=== PATIENT | female | born 1995 | race Caucasian/White ===

== ENCOUNTER 2024-10-14 21:29 | Emergency (ER) | payer BC, SELFPAY ==
--- OUTSIDE RECORDS SUMMARY | 2024-10-14 21:31 | XMS_ITS ---
Author Organization [facility] Address [address] [address] [place] [address] Care Team Providers Care Chassis Inspector Name Role Phone Outside, Provider Primary Care Provider Sandra Bell [phone] Allergies No Known Allergies Medications Medication SIG (Take, Route, Fr equency, Duration) Notes Start Date End Date Status Wegovy 2.4 MG/0.75ML 0.75 mL Subcutaneou s Once weekly for 90 days 03/05/2024 09/09/2024 Active Encounters Encounter Location Date Provider Diagnosis [facility] [address] [address] [place] [address] 03/13/2024 Sandra Foley Obesity, unspecified E66.9 Assessments Encounter Date Diagnosis (ICD Code) Assessment Notes Treatment Notes Treatment Clinical Notes Section Notes 03/13/2024 Obesity, unspecified (ICD-10 - E66.9) Plan Of Treatment Medication Medication Name Sig Start Date Stop Date Notes Wegovy 2.4 MG/0.75ML 0.75 mL Subcutaneou s Once weekly for 90 days 03/05/2024 09/09/2024 Progress Notes * LOLITAIZABELA RichtorriDOB: 4 (28 yo F)Acc No.[id number]:03/13/2024 Patient: Geneva GOMEZ :1995 A ge:28 Y S ex:Female [facility] [facility] [address] * Refills Refill Wegovy Solution Auto-injector, 2.4 MG/0.75ML, Subcutaneous, 9 Milliliter, 0.75 mL, Once weekly, 90 days, Refills=1 Subjective: * Chief Complaints: * * Medical History: * Surgical History: * Hospitalization/Major Diagno stic Procedure: * Medications: * Allergies: N .K.D.A.no[Allergies Verified] Objective: * Vitals: * Physical Examination: Assessment: * Assessment: 1. O besity, unspecified - E66.9 (Primary) Plan: * Treatment: * Procedure Codes: * true * Date: Generated for Marcos rodriguez/Isidro/eTransmitting on: 0 10/14/2024 09:31 PM CDT
--- OUTSIDE RECORDS SUMMARY | 2024-10-14 21:32 | XMS_ITS | Continuity of Care Document ---
Author Organization [facility] Address [address] [place] [address] Phone Care Team Providers Care Improvement Director Name Role Phone Lora Foley MD Unavailable Unavailable Procedures Procedure Date OFFICE/OUTPATIENT VISIT EST Advance Directives Directive Yes / No Effective Date File Name No Information Encounters Encounter Description Practice Location Reason(s) For Visit Diagnoses Date Provider Providers Copied on Encounter OFFICE/OUTPAT IENT VISIT EST [facility], [address], [place], [place], [address], tel:[phone] Rheumatology [place] No Information Og Paulino. [address] [place], [place], [address] , . tel: [phone] Referring Provider: Lora Foley, [address] [place], [address] . tel:[phone] Family History Family Member Type Diagnosis Age At Onset No Information Payers Payer name Insurance type Covered libertarian ID Authoriza tilarry(s) Aetna [id number] Social History Type Description Quantity Date Captured [...]
--- OUTSIDE RECORDS SUMMARY | 2024-10-14 21:32 | XMS_ITS | Patient Health Record ---
Author Organization [facility] Address [address] [facility] [address] [place] [address] Care Team Providers Care Utility Forester Name Role Phone Outside, Provider Primary Care Provider Sandra Bell Unavailable [phone] Allergies No Known Allergies Reason For Referral No Information Medications Medication SIG (Take, Route, Frequency, Duration) Notes Start Date End Date Status Rexulti 1 MG Oral for 90 Days Active Trelegy Ellipta 100-62.5-25 MCG/ACT 1 puff Inhalation Once a day 09/01/2023 Active Lisdexamfetamine Dimesylate 70 MG TAKE ONE (1) CAPSULE(S) BY MOUTH DAILY. Oral for 30 Days Active lamoTRIgine 150 MG TAKE 1 TABLET BY ADRY TH TWICE DAILY Oral for 90 Days Active Problems Problem Type SNOMED Code ICD Code Onset Dates Problem Status W/U Status Risk Notes Problem [id number] Obesity, unspecified (E66.9) Active confirmed Improving with Wegovy, BMI now in overweight category Problem Attention deficit hyperactivity disorder (215453119) ADHD (F90.9) Active confirmed Problem 798238188 Body mass index [BMI] 32.0-32.9, adult (Z68.32) Active confirmed Problem 451332827 Body mass index [BMI] 34.0-34.9, adult (Z68.34) Active confirmed Problem 949562985 Body mass index [BMI] 30.0-30.9, adult (Z68.30) Active confirmed Vital Signs Height-cm 177.8 cm 03/28/2024 Blood pressure diastolic 83 mm Hg 03/28/2024 Weight-kg 88.9 kg 03/28/2024 Height 70 in 03/28/2024 Blood pressure systolic 113 mm Hg 03/28/2024 Weight 196 lbs 03/28/2024 BMI 28.12 kg/m2 03/28/2024 Encounters Encounter Location Date Provider Diagnosis [facility] + [address] [place] [address] 11/02/2023 Sandra Foley Obesity, unspecified E66.9 and Body mass index [BMI] 32.0-32.9, adult Z68.32 [facility] + [address] [place] [address] 02/01/2024 Sandra Foley Obesity, unspecified E66.9 and Body mass index [BMI] 30.0-30.9, adult Z68.30 [facility] + [address] [place] [address] 03/28/2024 Sandra Foley Obesity, unspecified E66.9 and Body mass index [BMI] 28.0-28.9, adult Z68.28 [facility] + [address] [place] [address] 12/26/2023 Sandra Foely Obesity, unspecified E66.9 [place] [address] [address] 03/13/2024 Sandra Foley Obesity, unspecified E66.9 [facility] + [address] [place] [address] 10/17/2023 Sandra Foley [facility] + [address] [place] [address] 10/17/2023 Sandra Foley [facility] + [address] [place] [address] 10/17/2023 Sandra Foley [facility] + [address] [place] [address] 12/26/2023 Sandra Foley [facility] + [address] [place] [address] 12/27/2023 Sandra Foley [facility] + [address] [place] [address] 03/02/2024 Sandra Foley Obesity, unspecified E66.9 Assessments Encounter Date Diagnosis (ICD Code) Assessment Notes Treatment Notes Treatment Clinical Notes Section Notes 11/02/2023 Obesity, unspecified (ICD-10 - E66.9) Pt is doing well on Wegovy, will continue with dose titration. New Rx sent, instructed in plan to increase monthly x5 months, then maintain on 2.4mg. Continue dietary changes. Plan another f/u appt in 3 months, or sooner PRN. 11/02/2023 Body mass index [BMI] 32.0-32.9, adult (ICD-10 - Z68.32) 12/26/2023 Obesity, unspecified (ICD-10 - E66.9) 02/01/2024 Obesity, unspecified (ICD-10 - E66.9) Continue Wegovy, increase to 1.7mg for 4 weeks and then to maintenance dose of 2.4mg. Reviewed continued diet and exercise modifications for sustainable weight loss. Discussed move, will need to set up care with a new provider to continue prescribing and monitoring for Wegovy. Discussed that there will likely be another prior authorization process when her insurance changes and that if she ends up having to go off of it for a prolonged period of time, would need to restart at the lowest dose and titrate up again. We will plan to f/u again in March prior to her move. 02/01/2024 Body mass index [BMI] 30.0-30.9, adult (ICD-10 - Z68.30) 03/02/2024 Obesity, unspecified (ICD-10 - E66.9) 03/13/2024 Obesity, unspecified (ICD-10 - E66.9) 03/28/2024 Obesity, unspecified (ICD-10 - E66.9) Improving with Wegovy, BMI now in overweight category Continue Wegovy at current dose as long as side effects remain tolerable. 3-month supply sent to pharmacy so ideally she can have extra supply while she's getting her new insurance set up and establishing care with new providers. 03/28/2024 Body mass index [BMI] 28.0-28.9, adult (ICD-10 - Z68.28) Plan Of Treatment No Information Insurance Providers Payer Name Payer Address Payer Phone Subscriber Number Group Number Insured Name Patient Relationship to Insured Coverage Start Date Coverage End Date [facility] [address] [place] [address] [phone] [id number] KierranealGeneva cosby Self - patient is the insured 2 Medical (General) History Medical History History ICD Code bipolar disorder asthma sjogren syndrome epilepsy ADHD F90.9 Surgical History Surgery Date(Month/Year) bilateral salpingectomy 12/2021
--- OUTSIDE RECORDS SUMMARY | 2024-10-14 21:32 | XMS_ITS ---
Author Organization [facility] Address [address] [facility] [address] [place] [address] Care Team Providers Care Verification Rep Name Role Phone Outside, Provider Primary Care Provider Sandra Bell [phone] Allergies No Known Allergies REASON FOR VISIT 2 month f/u Medications Medication SIG (Take, Route, Frequency, Duration) Notes Start Date End Date Status Wegovy 2.4 MG/0.75ML 0.75 mL Subcutaneou s Once weekly for 90 days 03/05/2024 09/24/2024 Active Rexulti 1 MG Oral for 90 Days Active Trelegy Ellipta 100-62.5-25 MCG/ACT 1 puff Inhalation Once a day 09/01/2023 Active Lisdexamfetamine Dimesylate 70 MG TAKE ONE (1) CAPSULE(S) BY MOUTH DAILY. Oral for 30 Days Active lamoTRIgine 150 MG TAKE 1 TABLET BY ADRY TWICE DAILY Oral for 90 Days Active Vital Signs Height 70 in 03/28/2024 Weight 196 lbs 03/28/2024 BMI 28.12 kg/m2 03/28/2024 Blood pressure systolic 113 mm Hg 03/28/20 24 Blood pressure diastolic 83 mm Hg 024 Height-cm 177.8 cm 03/28/2024 Weight-kg 88.9 kg 03/28/2024 Encounters Encounter Location Date Provider Diagnosis [facility] [address] [facility] [address] [place] [address] 03/28/2024 Sandra Foley Obesity, unspecified E66.9 and Body mass index [BMI] 28.0-28.9, adult Z68.28 Assessments Encounter Date Diagnosis (ICD Code) Assessment Notes Treatment Notes Treatment Clinical Notes Section Notes 03/28/2024 Obesity, unspecified (ICD-10 - E66.9) Improving [...] adult (ICD-10 - Z68.28) Plan Of Treatment Medication Medication Name Sig Start Date Stop Date Notes Wegovy 2.4 MG/0.75ML 0.75 mL Subcutaneou s Once weekly for 90 days 03/05/2024 09/24/2024 Treatment Notes Assessment Notes Obesity, unspecified Continue Wegovy at current dose as long as side effects remain tolerable. 3-month supply sent to pharmacy so ideally she can have extra supply while she's getting her new insurance set up and establishing care with new providers. Next Appt Details Follow Up: prn, Reason: Progress Notes * Geneva KEITADOB: 4 (28 yo F)Acc No.[id number]:03/28/2024 Patient: Geneva GOMEZ Appointment Provider: Alondra Foley NP :1995 A ge:28 Y S ex:Female Date:03/28/2024 [facility] [address] [facility] Pcp:Provider Outside Subjective: * Chief Complaints: * 2 month f/u * HPI: G YN: 28 year old female pt presents for weight loss f/u. She started Wegovy in August, has lost a total of 44lbs so far. She is very happy with this progress and is feeling better overall. She does note that now that she's on the maximum dose she experiences more nausea and stomach cramps, but it is mainly the day after her injections and it does improve with time and is tolerable. She denies any new concerns at this time. She will be moving to [place] next week, is in the process of setting up appts with new providers up there. * ROS: G eneral/Constitutional: Chills N o. F atigue N o. F ever N o. W eight gain N o. W eight loss Y es. E ndocrine: Cold intolerance N o. I rregular menses Y es. H air loss N o. A cne N o. H ot flashes N o. R espiratory: Cough N o. S hortness of breath N o. ? B reast: Breast lump N o. B reast pain N o. N ipple discharge N o. C ardiovascular: Palpitations N o. C hest pain N o. G astrointestinal: Constipation Y es. N ausea N o. V omiting N o. W omen Only: Vaginal discharge/itching N o. G enitourinary: Blood in urine N o. P ainful urination N o. ? 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 D ate of Last Period . * OB History: T otal pregnancies 0 . * Surgical History: b ilateral salpingectomy 12/2021 * Hospitalization/Major Diagno stic Procedure: N o Hospitalization History. * Family History: P aternal Grand Father: , lung cancer. P aternal Grand Mother: , lung cancer. M aternal Grand Father: , lung cancer. M aternal Grand Mother: , lung cancer. * Social History: P HQ-9: O starr the past 2 weeks, how often have you been bothered by any of the following problems? L ittle interest or pleasure in doing things?N/A F eeling down, depressed, or hopeless N /A T rouble falling asleep, staying asleep, or sleeping too much N /A F eeling tired or having little energy N /A P oor appetite or overeating 0 -Not at all F eeling bad about yourself, feeling that you are a failure, or feeling that you let yourself or your family down 0 -Not at all T rouble concentrating on things such as reading the newspaper or watching television N /A M oving or speaking so slowly that other people could have noticed. Or being so fidgety or restless that you have been moving around a lot more than usual 0 -Not at all T hinking that you would be better off or that you want to hurt yourself in some way 0 -Not at all Impairment in function H ow difficult have these problems made it for you to do your work, take care of things at home, or get along with other people? N ot difficult at all S ocial Determinants: F ood Insecurities Within the past 12 months we worried whether our food would run out before we got money to buy more N o Within the past 12 months the food we bought just didn't last and we didn't have money to get more N o L markos term Partner Tobacco-Never. * Medications: T akingLisdexamfetamine Dimesylate 70 MG Capsule TAKE ONE (1) CAPSULE(S) BY MOUTH DAILY. Oral lamoTRIgine 150 MG Tablet TAKE 1 TABLET BY MOUTH TWICE DAILY Oral Rexulti 1 MG Tablet Oral Trelegy Ellipta 100-62.5-25 MCG/ACT Aerosol Powder Breath Activated 1 puff Inhalation Once a day Wegovy 2.4 MG/0.75ML Solution Auto-injector 0.75 mL Subcutaneous Once weekly , stop date 09/09/2024Medication List reviewed and reconciled with the patientTaking Lisdexamfetamine Dimesylate 70 MG Capsule TAKE ONE (1) CAPSULE(S) BY MOUTH DAILY. Oral Taking lamoTRIgine 150 MG Tablet TAKE 1 TABLET BY MOUTH TWICE DAILY Oral Taking Rexulti 1 MG Tablet Oral Taking Trelegy Ellipta 100-62.5-25 MCG/ACT Aerosol Powder Breath Activated 1 puff Inhalation Once a day Taking Wegovy 2.4 MG/0.75ML Solution Auto-injector 0.75 mL Subcutaneous Once weekly , stop date 09/09/2024Medication List reviewed and reconciled with the patient * Allergies: N .K.D.A.no[Allergies Verified] Objective: * Vitals: Ht 70 in 03/28/2024 01:35:08 PM CDT Wt* 196lbs 03/28/2024 01:35:08 PM CDT Jasmyne subramanian MA BMI* 28.12Index 03/28/2024 01:35:09 PM CDT Jasmyne subramanian MA BP* 113/83mm Hg 03/28/2024 01:35:09 PM CDT Jasmyne subramanian MA Ht-cm* 177.8 cm 03/28/2024 01:35:09 PM CDT Jasmyne subramanian MA Wt-kg* 88.9 kg 03/28/2024 01:35:09 PM CDT Jasmyne subramanian MA * Examination: G eneral Exam: CONSTITUTIONAL: G eneral Appearance: a lert, in no acute distress, normal, well nourished HEENT: H ead: n ormocephalic, atraumatic RESPIRATORY: R espiratory Effort: b reathing unlabored MUSCULOSKELETAL: G ait and Station: s teady stance SKIN: S kin: n ormal NEURO/PSYCH: O rientation: t zachary , place, person M ood/Affect: n ormal Assessment: * Assessment: 1. O besity, unspecified - E66.9 (Primary) N otes :Improving with Wegovy, BMI now in overweight category 2 . B silvio mass index [BMI] 28.0-28.9, adult - Z68.28 Plan: * Treatment: * Procedure Codes: 9 6160 PT-FOCUSED HLTH RISK ASSMT * Follow Up: p rn * Billing Information: * Visit Code: 15913 Office Visit, Est Pt., Level 3. * Procedure Codes: 67302 PT-FOCUSED HLTH RISK ASSMT. 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 She started Wegovy in August, has lost a total of 44lbs so far. She is very happy with this progress and is feeling better overall. She does note that now that she's on the maximum dose she experiences more nausea and stomach cramps, but it is mainly the day after her injections and it does improve with time and is tolerable. She denies any new concerns at this time. She will be moving to [place] next week, is in the process of setting up appts with new providers up there. Examination Category Sub-Category Detail Notes Category Not es General Exam CONSTITUTIONAL: General Appearan ce:: alert, in no acute distress, normal, well nourished HEENT: Head:: normocephalic, atraumatic RESPIRATORY: Respiratory Effort:: breathing u nlabored MUSCULOSKELETAL: Gait and Station:: steady stanc e SKIN: Skin:: normal NEURO/PSYCH: Orientation:: time , place, pers on Mood/Affect:: normal
--- OUTSIDE RECORDS SUMMARY | 2024-10-14 21:32 | XMS_ITS ---
Author Organization [facility] Address [address] [facility] [address] [place] [address] Care Team Providers Care Director Center Name Role Phone Outside, Provider Primary Care Provider Sandra Bell [phone] REASON FOR VISIT 2 month f/u Medications [...] Location Date Provider Diagnosis [facility] + [address] [place] [address] [place] [phone] 03/19/2024 Sandra Foley Plan Of Treatment No Information Progress Notes * Geneva KEITADOB: 4 (29 yo F)Acc No.[id number]:03/19/2024 Patient: Geneva GOMEZ Appointment Provider: Alondra Foley NP :1995 A ge:28 Y S ex:Female Date:03/19/2024 Address:[facility] [address] [facility] Pcp:Provider Outside Subjective: * Chief Complaints: * [...] Electronic signature of Anabel Foley NP on 10/14/2024 at 09:32 PM CDT Sign off status: Pending * Appointment Provider: Alondra Foley NP Date: 1 Generated for Marcos rodriguez/Isidro/eTransmtru on: 0 10/14/2024 09:32 PM CDT
[2024-10-14 21:36] VITALS: BP 129/85; PULSE 103; RESP 28; TEMP 37.1; O2SAT 99
[2024-10-14] MEDS: 0.9 % SODIUM CHLORIDE 1000 ml 1,000 ML IV (21:54)
[2024-10-14 21:58] VITALS: PULSE 85; RESP 20; O2SAT 99
[2024-10-14 21:59] VITALS: O2SAT 99
[2024-10-14 22:04] LABS: Lactate* 1.4 mmol/L (0.5-1.9)
[2024-10-14 22:05] LABS: Basophils Absolute Auto 0.02 K/uL (0.00-0.30); Basophils Percent Auto 0.3 % (0.0-3.0); Eosinophils Absolute Auto 0.07 K/uL (0.00-0.50); Eosinophils Percent Auto 1.1 % (0.0-7.0); Hematocrit 33.9 % (33.0-51.0); Hemoglobin* 10.9 gm/dL (12.0-16.0); Immature Granulocytes Abs Auto 0.01 K/uL (0.00-0.30); Immature Granulocytes Pct Auto 0.2 %; Lymphocytes Absolute Auto 2.28 K/uL (0.90-2.90); Lymphocytes Percent Auto 34.5 % (20-44); Mean Corpuscular HGB Conc 32 gm/dL (32-36); Mean Corpuscular Hemoglobin 28 pg (26-34); Mean Corpuscular Volume 87 fL (80-100); Monocytes Percent Auto 5.4 % (0.0-11.0); Neutrophils Absolute Auto 3.87 K/uL (1.7-7.0); Neutrophils Percent Auto 58.5 % (42.0-72.0); Platelet Count* 358 K/uL (140-440); RDW Coefficient of Variation % 13.7 % (11.5-15.5); White Blood Count* 6.61 K/uL (4.50-11.00)
[2024-10-14 22:06] VITALS: BP 125/87; PULSE 86; RESP 20; TEMP 36.8; O2SAT 98
[2024-10-14 22:06] LABS: Slide Review Reflex No
--- OUTSIDE RECORDS SUMMARY | 2024-10-14 22:06 | XMS_ITS | Continuity of Care Document ---
Author Organization [facility] Address [address] [place] [address] Phone Care Team Providers Care Inventory Representative Name Role Phone Lora Foley MD Unavailable Unavailable Procedures Procedure Date OFFICE/OUTPATIENT VISIT EST Advance Directives Directive Yes / No Effective Date File Name No Information Encounters Encounter Description Practice Location Reason(s) For Visit Diagnoses Date Provider Providers Copied on Encounter OFFICE/OUTPAT IENT VISIT EST [facility], [address], [place], [place], [id number], tel:[phone] Rheumatology [place] No Information Og Paulino. [address] [place], [place], [id number] , . tel: [phone] Referring Provider: Lora Foley, [address] [place], [address] . tel:[phone] Family History Family Member Type Diagnosis Age At Onset No Information Payers Payer name Insurance type Covered republican ID Authoriza tilarry(s) [employer] [id number] Social History Type Description Quantity Date Captured [...]
[2024-10-14 22:18] LABS: Chloride* 105 mmol/L (96-114)
[2024-10-14] MEDS: ONDANSETRON 2 MG/ML inj 4 MG IVP (22:18)
[2024-10-14 22:19] LABS: Potassium* 3.8 mmol/L (3.6-5.1); Sodium* 137 mmol/L (135-149)
[2024-10-14 22:22] LABS: Anion Gap 8 mEq/L (7-15); Blood Urea Nitrogen* 13 mg/dL (5-24); Calcium* 8.7 mg/dL (8.4-10.6); Carbon Dioxide* 24 mmol/L (20-32); Creatinine* 0.7 mg/dL (0.5-1.5); Estimated Glomerular Filt Rate 119 ml/min; Glucose* 105 mg/dL (60-115)
[2024-10-14 22:26] LABS: C Reactive Protein* < 0.5 mg/dL (0.5-1.0)
[2024-10-14 22:33] LABS: D Dimer Quantitative* 0.27 ug/ml (0.00-0.50)
[2024-10-14 22:43] VITALS: BP 121/77; PULSE 82; RESP 16; O2SAT 98
[2024-10-14 22:56] LABS: NT Pro B Type NatriureticPept* 57 pg/mL
--- NOTE | 2024-10-14 23:02 | ED_ITS ---
HPI - Allergic Reaction General Date Seen: 10/14/24 Chief complaint: Allergic Reaction Stated complaint: allergic reaction Time Seen by Provider: 10/14/24 21:33 Source: patient and family Mode of arrival: ambulatory Limitations: no limitations History of Present Illness HPI narrative: Patient is a very nice 29-year-old female presents here with her partner for evaluation of a possible allergic reaction, she was at home eating, when she felt her throat closing. She felt herself audibly wheezing in her tongue swelling. She presents to the ER by her own vehicle and this occurred approxi mately 15 minutes ago. She does tell me that she does have a history of anaphylaxis when she was young peanuts, but she has had peanut butter since then, and has done well with this. She felt herself hyperventilating with a perioral numbness associated with this and also in her fingers. She took 75 mg total Benadryl at home. Before presenting here. No rashes no diarrhea no abdominal pain, she does have a history of asthma and uses her inhaler, irregularly. Not every day No history of any rashes associated with this. MD complaint: allergic reaction Severity: moderate Treatment prior to arrival: benadryl Previous Allergic Reaction History: anaphylaxis Related Data Home Medications ?Medication ?Instructions ?Recorded ?Confirmed lamotrigine 150 mg tablet 150 mg PO QDAY 04/10/24 10/14/24 (Lamictal) dextroamphetamine-amphetamine 10 1 tab PO DAILY 10/14/24 10/14/24 mg tablet hydroxyzine HCl 25 mg tablet 25 mg PO 3XD PRN 10/14/24 10/14/24 Previous Rx's ?Medication ?Instructions ?Recorded fluticasone furoate 100 1 inh inhalation QDAY #30 ea 05/16/24 mcg/actuation blister powder for inhalation (Arnuity Ellipta) lisdexamfetamine 70 mg capsule 70 mg PO QDAY #30 caps 08/06/24 (Vyvanse) brexpiprazole 1 mg tablet (Rexulti) 1 mg PO QDAY #30 tabs 08/20/24 epinephrine 0.3 mg/0.3 mL 0.3 mg (0.3 mL) IM Q5-15M PRN #2 ea 10/14/24 injection, auto-injector (EpiPen) Allergies Allergy/AdvReac Type Severity Reaction Status Date / Time banana Allergy Mild Vomiting Verified 05/16/24 10:05 eggplant Allergy Mild Diarrhea Verified 05/16/24 10:05 latex Allergy Mild Rash Verified 05/16/24 10:05 Review of Systems Status of ROS Reports: 10 or more systems reviewed and unremarkable except as noted in History and below PFSH PFS Surgical History History of bilateral salpingectomy ?Z90.79 - Acquired absence of other genital organ(s) (ICD-10) Family History Mother High blood pressure Father High blood pressure Psychiatric illness Maternal Grandmother Cancer Maternal Grandfather Cancer Paternal Grandmother Cancer Paternal Grandfather Cancer Social History What is your current living situation?: I presently have a place to live Problems where you live: no known problems In the past 12 months, utilities in danger of being shut off: no In past 12 months, lack of transportation kept you from medical appts, meetings, work, or getting things needed for daily living: no In the past 12 mos, have been you worried that your food would run out before you had money to buy more?: never true In the past 12 mos, the food you bought just didn't last and you didn't have money to buy more?: never true Smoking Status: Never smoker Do you use any of these nicotine containing products: None How often do you have a drink containing alcohol: never AUDIT-C Alcohol total score: 0 Non-prescribed substance use: denies use How often does anyone, including family, friends and others, physically hurt you : never How often does anyone, including family, friends and others, insult or talk down to you: never How often does anyone, including family, friends and others, threaten you with harm: never How often does anyone, including family, friends and others, scream or curse at you: never Exam Narrative: Exam Narrative: I find her in room 6, she appears to be hyperventilating slightly, and initially almost stridorous. But then when we got her to breathe through her nose the stridor went away. Her pupils are equal round reactive to light there is no scleral icterus redness or TMs are normal oropharynx normal her chest is good air entry bilaterally with no wheezing crackles noted heart sounds are normal her tongue appears normal this examiner, I do not see any swelling. Her neck is supple there is no meningismus her abdomen is soft and slightly obese there is no guarding no organomegaly bowel sounds are normal skin reveals no petechiae rashes. Const: Vital Signs, click to edit/add: Vital Signs - 24 hr 10/14/24 21:36 10/14/24 21:58 10/14/24 21:59 Temperature 98.8 F Pulse Rate [Pulse Oximeter] 103 H 85 Respiratory Rate 28 H 20 Blood Pressure [Le ft Upper Arm] 129/85 Pulse Oximetry 99 99 99 Oxygen Delivery Me thod Room Air Room Air 10/14/24 22:06 10/14/24 22:43 Temperature 98.3 F Pulse Rate [Pulse Oximeter] 86 82 Respiratory Rate 20 16 Blood Pressure [Le ft Upper Arm] 125/87 121/77 Pulse Oximetry 98 98 Oxygen Delivery Me thod Room Air Room Air Course Reevaluation(s) Time of Reevaluation #1: 23:33 Reevaluation #1: I went back and saw patient, easy respirations normal vital signs, her throat shows no swelling, her tongue is normal, and she has good air entry bilaterally with no wheezing crackles no stridorous respirations, no rashes seen.. Explained to her sometimes it is hard to differentiate allergic reaction from anxiety attack. She had stick matted of both of these. I think it would be reasonable to give her an EpiPen, have her follow-up with Allergy for testing, she does have the history of the peanut allergy in the past. We went over signs and symptoms when she should come back and be seen, she was comfortable in going home. Vital Signs Vital signs: Initial Vital Signs Temperature 98.8 F 10/14/24 21:36 Temperature Source Temporal Artery Scan 10/14/24 21:36 Pulse Rate 103 H 10/14/24 21:36 Respiratory Rate 28 H 10/14/24 21:36 Blood Pressure 129/85 10/14/24 21:36 Blood Pressure Mean 99 10/14/24 21:36 Blood Pressure Position Sitting 10/14/24 21:36 Pulse Oximetry 99 10/14/24 21:36 Oxygen Delivery Method Room Air 10/14/24 21:36 Vital Signs Temperature 98.8 F 10/14/24 21:36 Pulse Rate 103 H 10/14/24 21:36 Respiratory Rate 28 H 10/14/24 21:36 Blood Pressure 129/85 10/14/24 21:36 Pulse Oximetry 99 10/14/24 21:36 Oxygen Delivery Method Room Air 10/14/24 21:36 Temperature 98.3 F 10/14/24 22:06 Pulse Rate 82 10/14/24 22:43 Respiratory Rate 16 10/14/24 22:43 Blood Pressure 121/77 10/14/24 22:43 Pulse Oximetry 98 10/14/24 22:43 Oxygen Delivery Method Room Air 10/14/24 22:43 Medications Administered Medications: Discontinued Medications Generic Name Dose Route Start Last Admin Trade Name Freq PRN Reason Stop Dose Admin Sodium Chloride 1,000 mls @ 1,000 mls/hr 10/14/24 21:45 10/14/24 22:42 0.9 % Sodium Chloride 1000 Ml IV 10/14/24 22:44 Infused .Q1H JENNIFER Infusion Ondansetron HCl 4 mg 10/14/24 22:15 10/14/24 22:18 Ondansetron 2 Mg/Ml Inj IVP 10/14/24 22:16 4 mg ONCE ONE Administration MDM - Allergic Reaction MDM Narrative Medical decision making narrative: This could be related to early allergic reaction versus anaphylaxis versus reflux versus anxiety. Or combination of all. Given her past history of the peanut allergy, and she did tell me that she did carry an EpiPen for a while I think it be reasonable to watch her, I find her rate now to be stable. Although this can change we will do some laboratory tests also with this. Differential Diagnosis Differential diagnosis: Likely anaphylaxis, allergic reaction, angioedema, contact dermatitis, adverse reaction to drug, viral enanthem and urticaria Medical Records Attestation: I reviewed the patient's medical records. Lab Data Attestation: I reviewed the patient's lab results. Labs: Lab Results 10/14/24 Range/Units 22:00 WBC 6.61 (4.50-11.00) K/uL RBC 3.90 L (4.00-5.20) m/uL Hgb 10.9 L (12.0-16.0) gm/dL Hct 33.9 (33.0-51.0) % MCV 87 (80-100) fL MCH 28 (26-34) pg MCHC 32 (32-36) gm/dL RDW Coeff of Liz 13.7 (11.5-15.5) % Plt Count 358 (140-440) K/uL Neut % (Auto) 58.5 (42.0-72.0) % Lymph % (Auto) 34.5 (20-44) % Rowan % (Auto) 5.4 (0.0-11.0) % Eos % (Auto) 1.1 (0.0-7.0) % Baso % (Auto) 0.3 (0.0-3.0) % Neut # (Auto) 3.87 (1.7-7.0) K/uL Lymph # (Auto) 2.28 (0.90-2.90) K/uL Rowan # (Auto) 0.40 (0.00-0.90) K/UL Eos # (Auto) 0.07 (0.00-0.50) K/uL Baso # (Auto) 0.02 (0.00-0.30) K/uL Abs Immat Gran (auto) 0.01 (0.00-0.30) K/uL Imm/Tot Granulo (auto) 0.2 % D-Dimer Quant (PE/DVT) 0.27 (0.00-0.50) ug/ml Sodium 137 (135-149) mmol/L Potassium 3.8 (3.6-5.1) mmol/L Chloride 105 (96-114) mmol/L Carbon Dioxide 24 (20-32) mmol/L Anion Gap 8 (7-15) mEq/L BUN 13 (5-24) mg/dL Creatinine 0.7 (0.5-1.5) mg/dL Estimated GFR 119 ml/min Glucose 105 (60-115) mg/dL Lactate 1.4 (0.5-1.9) mmol/L Calcium 8.7 (8.4-10.6) mg/dL C-Reactive Protein < 0.5 L (0.5-1.0) mg/dL NT-Pro-B Natriuret Pep 57 pg/mL ECG Data Attestation: I personally reviewed and interpreted this ECG as follows: Prior ECG tracings: not available for review Interpretation: EKG is done which shows normal sinus rhythm normal EKG, no acute ST wave changes with a ventricular rate of 85. Discharge Plan Discharge Clinical Impression: Allergic reaction, Anxiety Patient Disposition: Home, Self-Care Condition: Improved Instructions: Anxiety (ED), Allergy Testing (ED) Additional Instructions: Home, rest, as discussed with you I think a referral to agile business analyst would be appropriate, please contact her primary care physician they can give this to you. Prescription given for an EpiPen also. Activity Level: Light activity Discharge Diet: Regular Prescriptions: New epinephrine [EpiPen] 0.3 mg/0.3 mL auto-injector 0.3 mg IM Q5-15M PRNQty: 2 0RF Rx Instructions: do not exceed 3 doses per episode No Action lamotrigine [Lamictal] 150 mg tablet 150 mg PO QDAY Arnuity Ellipta 100 mcg/actuation blister with device 1 inh inhalation QDAY Qty: 30 12RF dextroamphetamine-amphetamine 10 mg tablet 1 tab PO DAILY hydroxyzine HCl 25 mg tablet 25 mg PO 3XD PRN lisdexamfetamine [Vyvanse] 70 mg capsule 70 mg PO QDAY Qty: 30 0RF Rexulti 1 mg tablet 1 mg PO QDAY Qty: 30 1RF Follow Up/Referrals: Simon Mendoza MD [Primary Care Provider] - Stand Alone Forms: [employer] Info Instructions
== END 2024-10-14 23:39 | disposition home or self-care (01) ==
PROVIDERS: Emergency Provider Family Medicine; PCP Family Medicine
DX: T78.1XXA Other adverse food reactions, not elsewhere classified, initial encounter (principal); R06.2 Wheezing; R20.0 Anesthesia of skin; F41.9 Anxiety disorder, unspecified; Z91.010 Allergy to peanuts
CPT/HCPCS: 36415; 80048; 83605; 83880; 85025; 85379; 86140; 93005; 94761; 96374; 99284; J2405; J7030

== ENCOUNTER 2024-10-15 15:38 | Outpatient (CLI) | payer BC, SELFPAY ==
[2024-10-15 19:14] LABS: Chlamydia DNA Amplified* NOT DETECTED (No Detected); GC DNA Amplified* NOT DETECTED (No Detected)
== END 2024-10-15 15:39 | disposition home or self-care (01) ==
LOC: NFLDREF 15:38
PROVIDERS: PCP Family Medicine; Visit Provider Obstetrics & Gynecology
DX: R10.2 Pelvic and perineal pain (principal)
CPT/HCPCS: 87491; 87591

== ENCOUNTER 2024-10-22 12:47 | Outpatient (CLI) | payer BC, SELFPAY ==
--- NOTE | 2024-10-22 13:00 | CRLHL7_ITS ---
For Patients: As a result of the Century Cures Act, medical imaging exams and procedure reports are released immediately into your electronic medical record. You may view this report before your referring provider. If you have questions, please contact your health care provider. INDICATION: unspecified dyspareunia COMPARISON: none TECHNIQUE: 2D yepez scale and color Doppler images were acquired of the pelvis using a transabdominal and transvaginal approach. Spectral Doppler evaluation of the ovaries also performed. FINDINGS: Sonographic images demonstrate a normal size and smooth outer contour of the uterus. Uterus measures 7.1 cm in length by 3.2 cm in AP diameter by 4.9 cm in transverse dimension. The myometrium has a normal uniform echotexture. The endometrial lining measures 12 mm in composite thickness. Incidental cervical nabothian cysts. Endocervical fluid is present. The right ovary measures 3.6 x 2.6 x 3.2 cm in size and the left ovary measures 2.7 x 2.2 x 2.8 cm. The ovaries demonstrate normal arterial and venous blood flow on color Doppler analysis. There are no suspicious fluid collections within the cul-de-sac. Simple cyst right ovary measures 2.3 x 1.8 x 2.3 cm. Postop changes of bilateral salpingectomy. Normal spectral Doppler evaluation of both ovaries. IMPRESSION: Benign 2.3 cm simple cyst right ovary. Incidental bowel loops in the right adnexa. No evidence of ovarian torsion or excess pelvic free fluid. No uterine fibroid. Dictated by Eric Ryder MD @ 10/23/2024 6:02:15 AM (Electronically Signed)
== END 2024-10-22 12:48 | disposition home or self-care (01) ==
LOC: US 12:47
PROVIDERS: PCP Family Medicine; Visit Provider Obstetrics & Gynecology
DX: N94.10 Unspecified dyspareunia (principal); N83.291 Other ovarian cyst, right side; R10.2 Pelvic and perineal pain
CPT/HCPCS: 76830; 76856; 93976

== ENCOUNTER 2024-11-22 08:58 | Outpatient (RCR) | payer BC, SELFPAY | END 2025-03-22 23:59 | disposition home or self-care (01) | PROVIDERS: PCP Family Medicine; Visit Provider Obstetrics & Gynecology | DX: N94.10 Unspecified dyspareunia (principal); R29.91 Unspecified symptoms and signs involving the musculoskeletal system; R10.2 Pelvic and perineal pain; F43.10 Post-traumatic stress disorder, unspecified; Z51.89 Encounter for other specified aftercare | CPT/HCPCS: 97140; 97162 ==

== ENCOUNTER 2024-12-03 08:48 | Emergency (ER) | payer BC, SELFPAY ==
--- OUTSIDE RECORDS SUMMARY | 2020-09-03 19:00 | XMS_ITS | Continuity of Care Document ---
Author Organization [facility] Address [address] [place] [address] Phone Care Team Providers Care Forestry Fire Aide Name Role Phone Lora Foley MD Unavailable Unavailable Procedures Procedure Date OFFICE/OUTPATIENT VISIT EST Advance Directives Directive Yes / No Effective Date File Name No Information Encounters Encounter Description Practice Location Reason(s) For Visit Diagnoses Date Provider Providers Copied on Encounter OFFICE/OUTPAT IENT VISIT EST [facility], [address], [place], [place], [address], [phone] Rheumatology [place] No Information Og Paulino. [address] [place], [place], [id number] , . tel: [phone] Referring Provider: Lora Foley, [address] [place], [address] . tel:[phone] Family History Family Member Type Diagnosis Age At Onset No Information Payers Payer name Insurance type Covered democrat ID Authoriza tilarry(s) Aetna [id number] Social History Type Description Quantity Date Captured [...]
--- OUTSIDE RECORDS SUMMARY | 2020-09-03 19:00 | XMS_ITS | Continuity of Care Document ---
Author Organization [facility] Address [address] [place] [address] Phone Care Team Providers Care Photo Engraver Name Role Phone Lora Foley MD Unavailable Unavailable Procedures Procedure Date OFFICE/OUTPATIENT VISIT EST Advance Directives Directive Yes / No Effective Date File Name No Information Encounters Encounter Description Practice Location Reason(s) For Visit Diagnoses Date Provider Providers Copied on Encounter OFFICE/OUTPAT IENT VISIT EST [facility], [address], [place], [place], [address], [phone] Rheumatology [place] No Information Og Paulino. [address] [place], [place], [id number] , . tel: [phone] Referring Provider: Lora Foley, [address] [place], [address] . tel:[phone] Family History Family Member Type Diagnosis Age At Onset No Information Payers Payer name Insurance type Covered democrat ID Authoriza tilarry(s) Aetna [id number] Social History Type Description Quantity Date Captured [...]
--- OUTSIDE RECORDS SUMMARY | 2024-03-19 08:00 | XMS_ITS ---
Author Organization [facility] Address [address] [facility] [address] [place] [address] Care Team Providers Care Winding Inspector Name Role Phone Outside, Provider Primary Care Provider Sandra Bell [phone] REASON FOR VISIT 2 month f/u Medications [...] Location Date Provider Diagnosis [facility] + [address] [place] [address] [place] [address] 03/19/2024 Sandra Foley Plan Of Treatment No Information Progress Notes * Geneva KEITADOB: 4 (29 yo F)Acc No.[id number]:03/19/2024 Patient: Geneva GOMEZ Appointment Provider: Alondra Foley NP :1995 A ge:28 Y S ex:Female Date:03/19/2024 Address:[facility] [address], [facility] Pcp:Provider Outside Subjective: * Chief Complaints: * [...] Electronic signature of Anabel Foley NP on 12/03/2024 at 08:50 AM CDT Sign off status: Pending * Appointment Provider: Alondra Foley NP Date: 1 Generated for Marcos rodriguez/Isidro/eTransmitting on: 0 12/03/2024 08:50 AM CDT
--- OUTSIDE RECORDS SUMMARY | 2024-12-03 08:51 | XMS_ITS | Patient Health Record ---
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 Name Role Phone Outside, Provider Primary Care Provider Sandra Bell Unavailable [phone] Allergies No Known Allergies Reason For Referral [...] Problem Status W/U Status Risk Notes Problem [id number] Obesity, unspecified (E66.9) Active confirmed Improving with Wegovy, BMI now in overweight category Problem ADHD (F90.9) Active confirmed Problem [id number] Body mass index [BMI] 32.0-32.9, adult (Z68.32) Active confirmed Problem 289000011 Body mass index [BMI] 34.0-34.9, adult (Z68.34) Active confirmed Problem [id number] Body mass index [BMI] 30.0-30.9, adult (Z68.30) Active confirmed Vital Signs Blood pressure diastolic 83 mm Hg 03/28/2024 Height-cm 177.8 cm 03/28/2024 Weight-kg 88.9 kg 03/28/2024 Height 70 in 03/28/2024 Blood pressure systolic 113 mm Hg 03/28/2024 Weight 196 lbs 03/28/2024 BMI 28.12 kg/m2 03/28/2024 Encounters Encounter Location Date Provider Diagnosis [facility] [address] [facility] [address] [place] [address] 02/01/2024 Sandra Og Obesity, unspecified E66.9 and Body mass index [BMI] 30.0-30.9, adult Z68.30 [facility] [address] [facility] [address] [place] [address] 03/28/2024 Sandra Og Obesity, unspecified E66.9 and Body mass index [BMI] 28.0-28.9, adult Z68.28 [facility] + [address] [facility] [address] [place] [address] 12/26/2023 Sandra Og Obesity, unspecified E66.9 [facility] [address] [address] 03/13/2024 Sandra Og Obesity, unspecified E66.9 [facility] + [address] [facility] [address] [place] [address] 12/26/2023 Sandra Og [facility] + [id number] [place] [address] 12/27/2023 Sandra Og [facility] + [address] [place] [address] 03/02/2024 Sandra Og Obesity, unspecified E66.9 Assessments Encounter Date Diagnosis (ICD Code) Assessment Notes Treatment Notes Treatment Clinical Notes Section Notes 12/26/2023 Obesity, unspecified (ICD-10 - E66.9) 02/01/2024 [...] Insured Coverage Start Date Coverage End Date [facility] [address] [place] [address] [id number] Geneva Mendoza Self - patient is the insured 2 Medical (General) History Medical History History ICD Code bipolar disorder asthma sjogren syndrome epilepsy ADHD F90.9 Surgical History Surgery Date(Month/Year) bilateral salpingectomy 12/2021
[2024-12-03 09:02] VITALS: BP 121/92; PULSE 85; RESP 18; TEMP 36.2; O2SAT 97; BMI 31.3
--- NOTE | 2024-12-03 09:30 | CRLHL7_ITS ---
For Patients: As a result of the Century Cures Act, medical imaging exams and procedure reports are released immediately into your electronic medical record. You may view this report before your referring provider. If you have questions, please contact your health care provider. INDICATION: Right upper quadrant abdomen pain. TECHNIQUE: Ultrasound abdomen limited. Sonographic images of the right upper quadrant were obtained using yepez-scale and color Doppler images. COMPARISON: None. FINDINGS: Liver: Mildly echogenic liver. No suspicious masses. No intrahepatic biliary dilatation. Hepatopetal flow main portal Gallbladder: No stones or sludge. Normal wall thickness. No pericholecystic fluid. Positive sonographic Castellanos`s sign. Positive sonographic Castellanos`s sign. Common bile duct: 2 mm. Pancreas: Obscured by bowel gas. Right kidney: Normal in size. Normal echotexture and cortex. No suspicious masses, stones, or hydronephrosis. Vasculature: Proximal abdominal aorta and IVC are unremarkable. IMPRESSION: Hepatic steatosis. Dictated by Shraddha Crain MD @ 12/03/2024 10:05:27 AM (Electronically Signed)
--- NOTE | 2024-12-03 10:05 | ED_ITS ---
HPI - General Adult General Chief complaint: Abdominal Pain Stated complaint: upper right side abdominal pain Time Seen by Provider: 12/03/24 09:30 Source: patient Mode of arrival: ambulatory Limitations: no limitations History of Present Illness HPI narrative: 29-year-old female coming in today complaining of abdominal pain going on for approximately 1 week. Pain is located in the epigastric and right upper dimple drant region. It is worse after she eats. She states that she had 1 alcoholic beverage yesterday and that made her pain worse, has not had any alcohol in over a month. No fevers or chills. She feels nauseated but has not vomited. She has 2 soft bowel movements per day which is normal for her. She denies any urinary symptoms. Patient is on multiple medications, nothing new. Pain is a dull ache that is constant becomes sharp in more aggressive after eating, lasts about 2 hours before it becomes dull again. Patient's mother had a cholecystectomy around the same age. Related Data Home Medications ?Medication ?Instructions ?Recorded ?Confirmed lamotrigine 150 mg tablet 150 mg PO QDAY 04/10/2411/12 (Lamictal) dextroamphetamine-amphetamine 10 1 tab PO DAILY 12/03/24 mg tablet hydroxyzine HCl 25 mg tablet 25 mg PO 3XD PRN 10/14/24 10/30/24 metformin 500 mg tablet 1,000 mg PO QDAY 10/30/24 Previous Rx's ?Medication ?Instructions ?Recorded fluticasone furoate 100 1 inh inhalation QDAY #30 ea 05/16/24 mcg/actuation blister powder for inhalation (Arnuity Ellipta) lisdexamfetamine 70 mg capsule 70 mg PO QDAY #30 caps 08/06/24 (Vyvanse) brexpiprazole 1 mg tablet (Rexulti) 1 mg PO QDAY #30 t abs 08/20/24 epinephrine 0.3 mg/0.3 mL 0.3 mg (0.3 mL) IM Q5-15M FL N #2 ea 10/14/24 injection, auto-injector (EpiPen) Allergies Allergy/AdvReac Type Severity Reaction Status Date / Time banana Allergy Mild Vomiting Verified 12/03/24 09:08 eggplant Allergy Mild Diarrhea Verified 12/03/24 09:08 latex Allergy Mild Rash Verified 12/03/24 09:08 seasame Allergy Severe Anaphylaxis Uncoded 12/03/24 09:08 Review of Systems Status of ROS: Reports: 10 or more systems reviewed and unremarkable except as noted in History and below PFSH [facility] Surgical History History of bilateral salpingectomy ?Z90.79 - Acquired absence of other genital organ(s) (ICD-10) Family History Mother High blood pressure Father High blood pressure Psychiatric illness Maternal Grandmother Cancer Maternal Grandfather Cancer Paternal Grandmother Cancer Paternal Grandfather Cancer Social History What is your current living situation?: I presently have a place to live Problems where you live: no known problems In the past 12 months, utilities in danger of being shut off: no In past 12 months, lack of transportation kept you from medical appts, meetings, work, or getting things needed for daily living: no In the past 12 mos, have been you worried that your food would run out before you had money to buy more?: never true In the past 12 mos, the food you bought just didn't last and you didn't have money to buy more?: never true Smoking Status: Never smoker Do you use any of these nicotine containing products: None How often do you have a drink containing alcohol: never AUDIT-C Alcohol total score: 0 Non-prescribed substance use: denies use How often does anyone, including family, friends and others, physically hurt you : never How often does anyone, including family, friends and others, insult or talk down to you: never How often does anyone, including family, friends and others, threaten you with harm: never How often does anyone, including family, friends and others, scream or curse at you: never Exam Narrative: Exam Narrative: Overweight, well-developed patient in no acute distress. Alert and oriented. Answers questions appropriately. Mood appropriate, affect is slightly flat.. Thoughts are goal oriented and rational. No tangential or magical thinking noted. Patient speaks in full sentences without needing to catch her breath. HEENT: Normocephalic atraumatic. Pupils are equally round reactive to light. Extraocular muscles are intact. Conjunctivae are moist without any icterus noted. Moist mucous membranes. Posterior pharynx is normal. Neck is soft. Cardiovascular: Heart is regular rate and rhythm S1 and S2 are present without any murmurs. Lungs: Clear to auscultation bilaterally no wheezes rhonchi or rales are appreciated. Patient takes deep breaths without any discomfort. Abdomen: Soft and nondistended. Patient has acute right upper quadrant pain, positive Castellanos sign. Some epigastric discomfort as well, remainder of exam is unremarkable. Extremities: Bilateral lower extremities are without edema. Normal DP and PT pulses. Skin: Well perfused. Const: Vital Signs, click to edit/add: Vital Signs - 24 hr 12/03/24 09:02 Temperature 97.2 F L Pulse Rate [Pulse Oximeter] 85 Respiratory Rate 18 Blood Pressure [Ri ght Upper Arm] 121/92 H Pulse Oximetry 97 Oxygen Delivery Me thod Room Air Course Course ED Course: Ultrasound shows hepatic steatosis, normal gallbladder. Blood work unremarkable. Vital Signs Vital signs: Initial Vital Signs Temperature 97.2 F L 12/03/24 09:02 Temperature Source Temporal Artery Scan 12/03/24 09:02 Pulse Rate 85 12/03/24 09:02 Respiratory Rate 18 12/03/24 09:02 Blood Pressure 121/92 H 12/03/24 09:02 Blood Pressure Mean 101 12/03/24 09:02 Blood Pressure Position Sitting 12/03/24 09:02 Pulse Oximetry 97 12/03/24 09:02 Oxygen Delivery Method Room Air 12/03/24 09:02 Vital Signs Temperature 97.2 F L 12/03/24 09:02 Pulse Rate 85 12/03/24 09:02 Respiratory Rate 18 12/03/24 09:02 Blood Pressure 121/92 H 12/03/24 09:02 Pulse Oximetry 97 12/03/24 09:02 Oxygen Delivery Method Room Air 12/03/24 09:02 Temperature 97.2 F L 12/03/24 09:02 Pulse Rate 85 12/03/24 09:02 Respiratory Rate 18 12/03/24 09:02 Blood Pressure 121/92 H 12/03/24 09:02 Pulse Oximetry 97 12/03/24 09:02 Oxygen Delivery Method Room Air 12/03/24 09:02 Medical Decision Making MDM Narrative Medical decision making narrative: 29-year-old female with right upper quadrant abdominal pain, worse after eating. Symptoms are concerning for gallbladder dysfunction. Recommend follow-up with primary care to proceed with a HIDA scan. In the meantime, recommend daily omeprazole as gastritis or peptic ulcer disease can also be a possibility. Lab Data Lab results reviewed: Yes I reviewed the patient's lab results Labs: Lab Results 12/03/24 Range/Units 10:12 WBC 5.68 (4.50-11.00) K/uL RBC 4.46 (4.00-5.20) m/uL Hgb 12.2 (12.0-16.0) gm/dL Hct 38.6 (33.0-51.0) % MCV 87 (80-100) fL MCH 27 (26-34) pg MCHC 32 (32-36) gm/dL RDW Coeff of Liz 14.5 (11.5-15.5) % Plt Count 363 (140-440) K/uL Neut % (Auto) 60.6 (42.0-72.0) % Lymph % (Auto) 30.8 (20-44) % [place] % (Auto) 6.2 (0.0-11.0) % Eos % (Auto) 1.6 (0.0-7.0) % Baso % (Auto) 0.4 (0.0-3.0) % Neut # (Auto) 3.45 (1.7-7.0) K/uL Lymph # (Auto) 1.75 (0.90-2.90) K/uL [place] # (Auto) 0.40 (0.00-0.90) K/UL Eos # (Auto) 0.09 (0.00-0.50) K/uL Baso # (Auto) 0.02 (0.00-0.30) K/uL Abs Immat Gran (auto) 0.02 (0.00-0.30) K/uL Imm/Tot Granulo (auto) 0.4 % Sodium 137 (135-149) mmol/L Potassium 4.4 (3.6-5.1) mmol/L Chloride 104 (96-114) mmol/L Carbon Dioxide 24 (20-32) mmol/L Anion Gap 9 (7-15) mEq/L BUN 13 (5-24) mg/dL Creatinine 0.9 (0.5-1.5) mg/dL Estimated Creat Clear 97.94 Estimated GFR 88 ml/min Glucose 95 (60-115) mg/dL Lactate 0.7 (0.5-1.9) mmol/L Calcium 9.0 (8.4-10.6) mg/dL Total Bilirubin 0.5 (0.1-1.5) mg/dL Direct Bilirubin 0.2 (0.0-0.5) mg/dL AST 22 (12-35) U/L ALT 17 (4-35) U/L Alkaline Phosphatase 82 (40-150) U/L C-Reactive Protein < 0.5 L (0.5-1.0) mg/dL Total Protein 8.0 (6.0-8.3) g/dL Albumin 4.4 (3.3-5.0) g/dL Lipase 72 (23-300) U/L Urine Color Yellow (Yellow) Urine Appearance Clear (Clear) Urine pH 5.5 (5.0-8.5) Ur Specific [place] 1.025 (1.000-1.030) Urine Protein Negative (Negative) Urine Glucose (UA) Negative (Negative) Urine Ketones Negative (Negative) Urine Blood Negative (Negative) Urine Nitrite Negative (Negative) Urine Bilirubin Negative (Negative) Urine Urobilinogen 0.2 (0.2-1.0) Ur Leukocyte Esterase Negative (Negative) Urine RBC 0-2 (0-2) Urine WBC 0-2 (0-5) Ur Squamous Epith Cells Moderate A (None-Few) Urine Bacteria Few A (None) Urine HCG, Qual Negative (Negative) Imaging Data US - abdomen: Attestation: I have reviewed the pertinent imaging results. Radiologist's impression: TECHNIQUE: Ultrasound abdomen limited. Sonographic images of the right upper quadrant were obtained using yepez-scale and color Doppler images. COMPARISON: None. FINDINGS: Liver: Mildly echogenic liver. No suspicious masses. No intrahepatic biliary dilatation. Hepatopetal flow main portal Gallbladder: No stones or sludge. Normal wall thickness. No pericholecystic fluid. Positive sonographic Castellanos`s sign. Positive sonographic Castellanos`s sign. Common bile duct: 2 mm. Pancreas: Obscured by bowel gas. Right kidney: Normal in size. Normal echotexture and cortex. No suspicious masses, stones, or hydronephrosis. Vasculature: Proximal abdominal aorta and IVC are unremarkable. IMPRESSION: Hepatic steatosis. Discharge Plan Discharge Clinical Impression: Abdominal pain Patient Disposition: Home, Self-Care Condition: Stable Additional Instructions: Cause of your abdominal pain is unclear at this time. Gastritis or inflammation of the lining of the stomach can cause pain similar to what your experiencing so I do recommend you double your omeprazole to 2 tabs daily and you can also start taking Zantac when you are uncomfortable to see if this helps. This can be purchased [id number]. The other thing that can cause your pain is gallbladder dysfunction-you will need something called a HIDA scan ordered by your primary care provider to make sure that your gallbladder is functioning properly. In the meantime I would recommend eating more bland foods, avoid foods high in fat and avoid food that is spicy or contains a lot of acid such as citrus fruits, tomatoes. Follow-up with your primary care provider this week to proceed with further testing. Prescriptions: No Action lamotrigine [Lamictal] 150 mg tablet 150 mg PO QDAY Arnuity Ellipta 100 mcg/actuation blister with device 1 inh inhalation QDAY Qty: 30 12RF metformin 500 mg tablet 1,000 mg PO QDAY dextroamphetamine-amphetamine 10 mg tablet 1 tab PO DAILY hydroxyzine HCl 25 mg tablet 25 mg PO 3XD PRN epinephrine [EpiPen] 0.3 mg/0.3 mL auto-injector 0.3 mg IM Q5-15M PRNQty: 2 0RF Rx Instructions: do not exceed 3 doses per episode lisdexamfetamine [Vyvanse] 70 mg capsule 70 mg PO QDAY Qty: 30 0RF Rexulti 1 mg tablet 1 mg PO QDAY Qty: 30 1RF Follow Up/Referrals: Simon Mendoza MD [Primary Care Provider, Family Practice] Stand Alone Forms: [employer] Info Instructions
[2024-12-03 10:17] LABS: Lactate* 0.7 mmol/L (0.5-1.9)
[2024-12-03 10:20] LABS: Basophils Absolute Auto 0.02 K/uL (0.00-0.30); Basophils Percent Auto 0.4 % (0.0-3.0); Eosinophils Absolute Auto 0.09 K/uL (0.00-0.50); Eosinophils Percent Auto 1.6 % (0.0-7.0); Hematocrit 38.6 % (33.0-51.0); Hemoglobin* 12.2 gm/dL (12.0-16.0); Immature Granulocytes Abs Auto 0.02 K/uL (0.00-0.30); Immature Granulocytes Pct Auto 0.4 %; Lymphocytes Absolute Auto 1.75 K/uL (0.90-2.90); Lymphocytes Percent Auto 30.8 % (20-44); Mean Corpuscular HGB Conc 32 gm/dL (32-36); Mean Corpuscular Hemoglobin 27 pg (26-34); Mean Corpuscular Volume 87 fL (80-100); Monocytes Percent Auto 6.2 % (0.0-11.0); Neutrophils Absolute Auto 3.45 K/uL (1.7-7.0); Neutrophils Percent Auto 60.6 % (42.0-72.0); Platelet Count* 363 K/uL (140-440); RDW Coefficient of Variation % 14.5 % (11.5-15.5); Red Blood Count 4.46 m/uL (4.00-5.20); White Blood Count* 5.68 K/uL (4.50-11.00)
[2024-12-03 10:21] LABS: Appearance Urine Clear (Clear); Bilirubin Urine Negative (Negative); Blood Urine Negative (Negative); Color Urine Yellow (Yellow); Glucose Urine Negative (Negative); Ketones Urine Negative (Negative); Leukocyte Esterase Urine Negative (Negative); Nitrite Urine Negative (Negative); Protein Urine Negative (Negative); Specific Gravity Urine 1.025 (1.000-1.030); Urobilinogen Urine 0.2 (0.2-1.0); pH Urine 5.5 (5.0-8.5)
[2024-12-03 10:26] LABS: Slide Review Reflex No
[2024-12-03 10:29] LABS: RBC Urine 0-2 (0-2); Squamous Epithelial Cell Urine Moderate (None-Few); WBC Urine 0-2 (0-5)
[2024-12-03 10:30] LABS: Bacteria Urine Few; Ur HCG Qualitative* Negative (Negative)
[2024-12-03 10:35] LABS: Albumin* 4.4 g/dL (3.3-5.0); Chloride* 104 mmol/L (96-114)
[2024-12-03 10:36] LABS: Potassium* 4.4 mmol/L (3.6-5.1); Sodium* 137 mmol/L (135-149)
[2024-12-03 10:38] LABS: Blood Urea Nitrogen* 13 mg/dL (5-24); Creatinine* 0.9 mg/dL (0.5-1.5); Est. Creatinine Clearance* 97.94; Estimated Glomerular Filt Rate 88 ml/min
[2024-12-03 10:39] LABS: Alanine Aminotransferase* 17 U/L (4-35); Alkaline Phosphatase* 82 U/L (40-150); Anion Gap 9 mEq/L (7-15); Aspartate Amino Transferase* 22 U/L (12-35); Bilirubin Direct* 0.2 mg/dL (0.0-0.5); Bilirubin Total* 0.5 mg/dL (0.1-1.5); Carbon Dioxide* 24 mmol/L (20-32); Glucose* 95 mg/dL (60-115); Lipase* 72 U/L (23-300)
[2024-12-03 10:42] LABS: C Reactive Protein* < 0.5 mg/dL (0.5-1.0)
[2024-12-03 11:00] VITALS: BP 118/74; PULSE 76; RESP 16; O2SAT 8
== END 2024-12-03 11:53 | disposition home or self-care (01) ==
PROVIDERS: Emergency Provider Family Medicine; PCP Family Medicine
DX: R10.11 Right upper quadrant pain (principal)
CPT/HCPCS: 36415; 76705; 80048; 80076; 81001; 81025; 83605; 83690; 85025; 86140; 87086; 99284

== ENCOUNTER 2024-12-11 11:39 | Outpatient (CLI) | payer BC, SELFPAY ==
--- OUTSIDE RECORDS SUMMARY | 2020-09-03 19:00 | XMS_ITS | Continuity of Care Document ---
Author Organization [facility] Address [address] [place] [address] Phone Care Team Providers Care Freezer Laboratory Technician Name Role Phone Lora Foley MD Unavailable Unavailable Procedures Procedure Date OFFICE/OUTPATIENT VISIT EST Advance Directives Directive Yes / No Effective Date File Name No Information Encounters Encounter Description Practice Location Reason(s) For Visit Diagnoses Date Provider Providers Copied on Encounter OFFICE/OUTPAT IENT VISIT EST [facility], [address], [place], [place], [address], tel:[phone] Rheumatology [place] No Information Og Paulino. [address] [place], [place], [address] , . tel: [phone] Referring Provider: Lora Foley, [address] [place], [address] . tel:[phone] Family History Family Member Type Diagnosis Age At Onset No Information Payers Payer name Insurance type Covered democrat ID Authoriza tilarry(s) Aetna [id number] Social History Type Description Quantity Date Captured Comments Sex Female Smoking Status No Information Chief Complaint And Reason For Visit No Information Reason For Referral Reason For Referral No Information History Of Present Illness Encounter Date Complaint History Of Prese nt Illness No Information Functional Status Date Functional Assessmen t No Information Instructions Date Instruction Additional Infor mation No Information Assessments Type Assessment Date No Information Patient Care Teams Name Effective Dates (start - stop) Status Members No Information
--- OUTSIDE RECORDS SUMMARY | 2024-03-19 08:00 | XMS_ITS ---
Author Organization [facility] Address [address] [facility] [address] [place] [address] Care Team Providers Care Resource Program Teacher Name Role Phone Outside, Provider Primary Care Provider Sandra Bell [phone] REASON FOR VISIT 2 month f/u Medications Medication SIG (Take, Route, Frequency, Duration) Notes Start Date End Date Status Lisdexamfetamine Dimesylate 70 MG TAKE ONE (1) CAPSULE(S) BY MOUTH DAILY. Oral for 30 Days Active lamoTRIgine 150 MG TAKE 1 TABLET BY ADRY TH TWICE DAILY Oral for 90 Days Active Wegovy 2.4 MG/0.75ML 0.75 mL Subcutaneou s Once weekly for 90 days 03/05/2024 09/09/2024 Active Rexulti 1 MG Oral for 90 Days Active Trelegy Ellipta 100-62.5-25 MCG/ACT 1 puff Inhalation Once a day 09/01/2023 Active Encounters Encounter Location Date Provider Diagnosis [facility] + [address] [place] [address] [place] [address] 03/19/2024 Sandra Foley Plan Of Treatment No Information Progress Notes * Geneva KEITADOB: 4 (29 yo F)Acc No.[id number]:03/19/2024 Patient: Geneva GOMEZ Appointment Provider: Alondra Foley NP :1995 A ge:28 Y S ex:Female Date:03/19/2024 Address:[facility] [address], [facility] Pcp:Provider Outside Subjective: * Chief Complaints: * 1 . 2 month f/u. * Medical History: * Medications: T zaidag Lisdexamfetamine Dimesylate 70 MG Capsule TAKE ONE [...] Electronic signature of Anabel Foley NP on 12/12/2024 at 12:36 AM CDT Sign off status: Pending * Appointment Provider: Alondra Foley NP Date: 1 Generated for Marcos rodriguez/Isidro/eTransmtru on: 0 12/12/2024 12:36 AM CDT
--- NOTE | 2024-12-11 12:00 | CRLHL7_ITS ---
For Patients: As a result of the Century Cures Act, medical imaging exams and procedure reports are released immediately into your electronic medical record. You may view this report before your referring provider. If you have questions, please contact your health care provider. INDICATION: 29-year-old woman with history of abdominal pain. TECHNIQUE: 7.1 MCi Tc 99m Mebrofenin were administered intravenously and serial static images were obtained over the anterior abdomen over 60 minutes, demonstrating radiotracer uptake within the gallbladder and demonstrating tracer exiting into the small bowel. Subsequently, 2.0 Micrograms cholecystokinin was administered intravenously and the anterior abdomen was serially imaged with static views for another 30 minutes. COMPARISON: : Abdomen ultrasound 01/02/2025. FINDINGS: Initial 60 minutes images: There is normal radionuclide activity in the liver, common bile duct, gallbladder and small bowel. There is no evidence for cystic or common duct obstruction or intrinsic liver disease. After administration of cholecystokinin, minimal tracer is demonstrated exiting the gallbladder into the common bile duct and small bowel, with substantial residual tracer in the gallbladder. The gallbladder ejection fraction measures 29 %. Normal range for GB EF: Equal to or greater than 35%. IMPRESSION: 1. No evidence of cystic duct obstruction to support acute cholecystitis. No evidence of common bile duct obstruction. 2. Gallbladder ejection fraction measures 29 %, below normal limits. Findings are nonspecific, but can be seen with gallbladder dysfunction. Dictated by Kenton Abernathy MD @ 12/11/2024 3:15:10 PM (Electronically Signed)
--- OUTSIDE RECORDS SUMMARY | 2024-12-12 00:39 | XMS_ITS | Patient Health Record ---
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 Phone Outside, Provider Primary Care Provider Sandra Bell Unavailable [phone] Allergies No Known Allergies Reason For Referral [...] Problem Status W/U Status Risk Notes Problem [id number] Obesity, unspecified (E66.9) Active confirmed Improving with Wegovy, BMI now in overweight category Problem ADHD (F90.9) Active confirmed Problem 233463000 Body mass index [BMI] 32.0-32.9, adult (Z68.32) Active confirmed Problem 367968725 Body mass index [BMI] 34.0-34.9, adult (Z68.34) Active confirmed Problem 074493137 Body mass index [BMI] 30.0-30.9, adult (Z68.30) Active confirmed Vital Signs Blood pressure diastolic 83 mm Hg 03/28/2024 Height-cm 177.8 cm 03/28/2024 Weight-kg 88.9 kg 03/28/2024 Height 70 in 03/28/2024 Blood pressure systolic 113 mm Hg 03/28/2024 Weight 196 lbs 03/28/2024 BMI 28.12 kg/m2 03/28/2024 Encounters Encounter Location Date Provider Diagnosis [facility] [address] [facility] [address] [place] [address] 02/01/2024 Sandra Og Obesity, unspecified E66.9 and Body mass index [BMI] 30.0-30.9, adult Z68.30 [facility] [address] [facility] [address] [place] [address] 03/28/2024 Sandra Og Obesity, unspecified E66.9 and Body mass index [BMI] 28.0-28.9, adult Z68.28 [facility] [address] [facility] [address] [place] [address] 12/26/2023 Sandra Og Obesity, unspecified E66.9 [facility] [address] [address] 03/13/2024 Sandra Og Obesity, unspecified E66.9 [facility] [address] [facility] [address] [place] [address] 12/26/2023 Sandra Og [facility] + [address] [place] [address] 12/27/2023 Sandra Og [facility] + [address] [place] [address] 03/02/2024 Sandra Og Obesity, unspecified E66.9 Assessments [...] Insured Coverage Start Date Coverage End Date [facility] [address] [place] [address] [id number] Geneva Mendoza Self - patient is the insured 2 Medical (General) History Medical History History ICD Code bipolar disorder asthma sjogren syndrome epilepsy ADHD F90.9 Surgical History Surgery Date(Month/Year) bilateral salpingectomy 12/2021
== END 2024-12-11 11:40 | disposition home or self-care (01) ==
LOC: NM 11:39
PROVIDERS: PCP Family Medicine; Visit Provider Emergency Medicine
DX: R10.9 Unspecified abdominal pain (principal)
CPT/HCPCS: 78227; A9537; J2805

== ENCOUNTER 2024-12-24 09:04 | Day surgery (SDC) | payer BC, SELFPAY ==
[2024-12-24] VITALS (16 sets, daily range): BP systolic 114–148; BP diastolic 78–97; PULSE 60–81; RESP 13–20; TEMP 36.2–37.2; O2SAT 95–100; BMI 32.5
--- NOTE | 2024-12-24 09:22 | SUR.PREOP ---
pt declined UCG because she had a tubal
[2024-12-24] MEDS: GABAPENTIN 600 MG TABLET PO (09:25)
[2024-12-24] MEDS: SCOPOLAMINE 1 MG/3 DAY PATCH 1 PATCH TRANSDERMA (09:25)
[2024-12-24] MEDS: LACTATED RINGERS 1000 ML 1,000 ML 100 ML IV ×2 (09:45→12:24)
[2024-12-24] MEDS: SODIUM CHLORIDE 0.9 % (FLUSH) 10 ML SYRINGE IVF (09:46)
--- NOTE | 2024-12-24 09:48 | W.PM.H&PU ---
History & Physical Update History & Physical Update H&P Reviewed and patient assessed: No changes noted
--- NOTE | 2024-12-24 09:53 | P.GSOP_ITS ---
Operative Note Date of procedure: 12/24/24 Pre-op diagnosis: 1. Right upper quadrant pain concerning for acute on chronic cholecystitis. Post-op diagnosis: 1. Chronic cholecystitis with tortuous cystic duct causing partial gallbladder obstruction. Type of Procedure: 1. Laparoscopic cholecystectomy. Indications: 29-year-old female was seen in clinic for evaluation of right upper quadrant abdominal pain. The pain started over 1 month ago. Initially, patient felt like the pain was more of an upset stomach. However, the pain migrated to the right upper quadrant and became more sharp. It was worse after eating fatty food of fast food. The pain would last up to an hour and sometimes up to 3 hours. Patient currently has dull constant aching and the pain increases after eating. The pain was worse with lying down or sitting up. Patient has been taking Omeprazole for years for acid reflux. She feels like her acid reflux is well controlled. Patient was seen for in the emergency room for this pain on 12/03/2024. Patient's WBC, lipase, and liver function tests were normal. Gallbladder ultrasound was obtained that showed no evidence of cholelithiasis, there was no evidence of pericholecystic fluid in the gallbladder wall was measured at 1 mm. The common bile duct was measured at 2 mm. Patient was noted to have positive Castellanos sign during her ultrasound. She was then referred for a HIDA scan which was done on 12/11/2024. The HIDA scan showed ejection fraction of 29%. Patient felt sharp pain towards the end of HIDA scan. On clinical exam patient had nondistended abdomen, it was tender to palpation the right upper quadrant with positive Castellanos sign. Given patient's clinical history and her laboratory and imaging findings, I was concerned for acute cholecystitis. I recommended to proceed with laparoscopic cholecystectomy. The procedure was discussed in detail. The risks associated procedure including infection, bleeding, injury to intra-abdominal organs, injury to the common bile duct were all discussed with the patient, and she agreed to proceed. Procedure Description: After discussing the risks and benefits of the procedure, the patient signed informed consent.? The operative site was marked and the patient was brought to the operating room and placed on the operating table in supine position.? Care was taken to pad the patient's pressure points.?? The patient was then intubated by anesthesia.?? The operative site was then prepped and draped in the usual sterile fashion.? A time-out was then performed. A 5-mm laparoscopy port was placed in the left upper quadrant guided by a 5-mm laparoscope placed into a translucent trochar.~ Passage through the layers of the abdominal wall was visualized with the laparoscope.~ A pneumoperitoneum was established. A 0-degree 5-mm laparoscope was advanced into the abdomen. The abdomen was briefly surveyed, and no adhesions were noted. A 10-mm port were placed infraumbilically and two more 5 mm ports were placed on the right under direct visualization by laparoscope. The camera was then changed to 10 mm 30- degree scope and placed into the abdomen through the 10 mm port. The left upper quadrant port entrance was examined and no injury to intra-abdominal organs was identified. The gallbladder was identified, the fundus grasped and retracted cephalad. There is no evidence of acute inflammation. Duodenum was adherent to the anterior surface of the gallbladder with thin wispy adhesions. Those adhesions were taken down with hook cautery and Metzenbaum scissors with care taken not to injure the duodenum. The infundibulum was then grasped and retracted laterally, exposing the peritoneum overlying the triangle of Calot. This was then divided and exposed in a blunt fashion and with hook cautery. Common bile duct was not identified but care was taken not to injure it. Cystic artery was identified and tissues around it were dissected off. The cystic artery was medial and was small. The cystic artery was first clipped with 5 mm clips on the patient's side and a single clip on the specimen side and divided with scissors. This allowed for further visualization of the medial gallbladder fossa. The cystic duct was very torturous and was circumferentially dissected to be able to clearl y identify its course. The cystic duct was clearly going into the gallbladder. The cystic duct was then ligated with surgical clips on the patient's side and singly clipped on the gallbladder side and divided. The gallbladder was dissected from the liver bed in retrograde fashion using hookcautery. The gallbladder was placed into an Endo-Catch bag and removed through the infraumbilical incision. Surgical site was examined for bleeding. No bleeding was seen in the surgical field. The fascia of the infraumbilical incision was then closed with 0-0 vicryl using Aden Sangita needle under direct visualization. Pneumoperitoneum was completely reduced after viewing removal of the trocars under direct vision. The skin was then closed with 4-0 monocryl and steristrips were applied. Instrument, sponge, and needle counts were correct at closure and at the conclusion of the case. The patient was transferred to PACU in stable condition. Findings: No evidence of acute inflammation. Torturous small cystic duct that was likely causing partial obstruction of the gallbladder. Anesthesia: GETA Surgeon: Melody Mccarthy MD Estimated blood loss (mL): 5 Specimen: Gallbladder Condition: stable Disposition: PACU
[2024-12-24] MEDS: PIPERACILLIN/TAZOBACTAM 3.375 GM INJ IVPB (10:15)
[2024-12-24] MEDS: LIDOCAINE 1%-EPI 1:100,000 20 ML INFILTRATI (10:50)
[2024-12-24] MEDS: BUPIVACAINE 0.25% 30 ML INJECTION (10:50)
--- NOTE | 2024-12-24 11:31 | P.ANES_ITS ---
Anesthesia Charges Start Date/Time Anesthesia Start Date: 12/24/24 Anesthesia Start Time: 10:05 Stop Date/Time Anesthesia Stop Date: 12/24/24 Anesthesia Stop Time: 11:29 Coding CPT Codes CPT Codes: ANESTH SURG UPPER ABDOMEN - 80154 ([id number]) P2 - PATIENT W/MILD SYST DISEASE, QK - MENDER KNIT GOODS 2-4 CNCRNT ANES PROC, QX - RN ORTHOPAEDIC SVC W/ MD MED DIRECTION
--- NOTE | 2024-12-24 11:31 | W.ANESCHARGE ---
Anesthesia Charges Start Date/Time Anesthesia Start Date: 12/24/24 Anesthesia Start Time: 10:05 Stop Date/Time Anesthesia Stop Date: 12/24/24 Anesthesia Stop Time: 11:29 Coding CPT Codes CPT Codes: ANESTH SURG UPPER ABDOMEN - 88414 ([id number]) P2 - PATIENT W/MILD SYST DISEASE, QK - NETWORK TECHNOLOGY INSTRUCTOR 2-4 CNCRNT ANES PROC, QX - MEDICAL PATHOLOGY TEACHER SVC W/ MD MED DIRECTION
--- NOTE | 2024-12-24 11:41 | P.ANES_ITS ---
Anesthesia Charges Start Date/Time Anesthesia Start Date: 12/24/24 Anesthesia Start Time: 10:05 Stop Date/Time Anesthesia Stop Date: 12/24/24 Anesthesia Stop Time: 11:29 Coding CPT Codes CPT Codes: ANESTH SURG UPPER ABDOMEN - 58456 ([id number]) QK - ERP CONSULTANT 2-4 CNCRNT ANES PROC, QX - FREIGHT ASSOCIATE SVC W/ MD MED DIRECTION, P2 - PATIENT W/MILD SYST DISEASE
--- NOTE | 2024-12-24 11:41 | W.ANESCHARGE ---
Anesthesia Charges Start Date/Time Anesthesia Start Date: 12/24/24 Anesthesia Start Time: 10:05 Stop Date/Time Anesthesia Stop Date: 12/24/24 Anesthesia Stop Time: 11:29 Coding CPT Codes CPT Codes: ANESTH SURG UPPER ABDOMEN - 17353 ([id number]) QK - HOUSING DIRECTOR 2-4 CNCRNT ANES PROC, QX - BRANCH OFFICE MANAGER SVC W/ MD MED DIRECTION, P2 - PATIENT W/MILD SYST DISEASE
--- NOTE | 2024-12-24 13:23 | SUR.PHASEII ---
Pt c/o nausea. Offered pt Q-Easy aromatherapy patch. Pt willing to apply and patch applied to pt's gown. Continue to monitor.
== END 2024-12-24 13:57 | disposition home or self-care (01) ==
PROVIDERS: PCP Family Medicine; Visit Provider Surgery
PROC: 0FT44ZZ Resection of Gallbladder, Percutaneous Endoscopic Approach (ICD-10-PCS; CPT 47562; principal; 2024-12-24 10:15)
DX: K81.1 Chronic cholecystitis (principal); K82.0 Obstruction of gallbladder; R10.11 Right upper quadrant pain
CPT/HCPCS: 47562; 00790; A9270; J0665; J1100; J1885; J2250; J2405; J2543; J2704; J2710; J3010; J7120

== ENCOUNTER 2025-04-15 11:37 | Emergency (ER) | payer BC, SELFPAY ==
--- OUTSIDE RECORDS SUMMARY | 2024-03-19 07:00 | XMS_ITS ---
Author Organization [facility] Address [address] [facility] [address] [place] [address] Care Team Providers Care Lode Miner Name Role Phone Outside, Provider Primary Care Provider Sandra Bell [phone] REASON FOR VISIT 2 month f/u Medications Medication SIG (Take, Route, Frequency, Duration) Notes Start Date End Date Status Lisdexamfetamine Dimesylate 70 MG TAKE ONE (1) CAPSULE(S) BY MOUTH DAILY. Oral; Duration: 30 Days Active lamoTRIgine 150 MG TAKE 1 TABLET BY ADRY TH TWICE DAILY Oral; Duration: 90 Days Active Wegovy 2.4 MG/0.75ML 0.75 mL Subcutaneou s Once weekly; Duration: 90 days 03/05/2024 09/09/2024 Active Rexulti 1 MG Oral; Duration: 90 Days Active Trelegy Ellipta 100-62.5-25 MCG/ACT 1 puff Inhalation Once a day 09/01/2023 Active Encounters Encounter Location Date Provider Diagnosis [facility] + [address] [place] [address] [place] [address] 03/19/2024 Sandra Foley Plan Of Treatment No Information Progress Notes * Geneva KEITADOB: 4 (29 yo F)Acc No.[id number]:03/19/2024 Patient: Geneva GOMEZ Appointment Provider: Alondra Foley NP :1995 A ge:28 Y S ex:Female Date:03/19/2024 Address:[facility] [address], [facility], [facility] Pcp:Provider Outside Subjective: * Chief Complaints: * 1 . 2 month f/u. * Medical History: * Medications: T kirill Lisdexamfetamine Dimesylate 70 MG Capsule TAKE ONE (1) CAPSULE(S) BY MOUTH DAILY. Oral , Taking lamoTRIgine 150 MG Tablet TAKE 1 TABLET BY MOUTH TWICE DAILY Oral , Taking Rexulti 1 MG Tablet Oral , Taking Trelegy Ellipta 100-62.5-25 MCG/ACT Aerosol Powder Breath Activated 1 puff Inhalation Once a day , Taking Wegovy 2.4 MG/0.75ML Solution Auto-injector 0.75 mL Subcutaneous Once weekly , stop date 09/09/2024 Objective: Assessment: Plan: * Treatment: * Billing Information: * Visit Code: * Procedure Codes: * Electronic signature of Anabel Foley NP on 04/15/2025 at 11:39 AM CHIEF TECHNICAL OFFICER Sign off status: Pending * Appointment Provider: Alondra Foley NP Date: Generated for Marcos rodriguez/Isidro/eTransmitting on: 06/15/2024 11:39 AM CHIEF TECHNICAL OFFICER
--- OUTSIDE RECORDS SUMMARY | 2025-03-08 15:00 | XMS_ITS | Encounter Summary ---
Author Organization [facility] Address [address] [place] [id number] Care Team Providers Care Brush Sander Name Role Phone Simon Mendoza MD Primary Care Provider [phone] Racheal Palomares MD Unavailable Reason for Visit * Reason Comments Consult Sjogren's syndrome; Scheduled per pt; Referred by Simon Mendoza MD; MR-Epic * Consultation (Routine: Next available opening) - Closed Specialty Diagnoses / Procedures Referred By Farhat main Referred To Contact Rheumatology Diagnoses Sjogren syndrome, unspecified Simon Mendoza MD [facility] [address] [place] [address] Phone: tel: fax: Referral ID Status Reason Start Date Expiration Date Visits Re quested Visits Authorized [id number] Closed 02/28/2025 02/28/2026 1 1 Encounter Details Date Type Department Care Team (Late st Contact Info) Description 03/08/2025 4:00 PM CDT Office Visit [facility] [address] [place] [id number] Racheal Palomares MD [address] [facility] [address] [place] [address] Sjogren syndrome, unspecified Social History Tobacco Use Types Packs/Day Years Used Date Smoking Tobacco: Never Assessed Comments Unknown Sex and Gender Information Value Date Recorded Sex Assigned at Not on file Legal Sex Female 3:28 PM CDT Gender Identity Not on file Sexual Orientation Not on file documented as of this encounter Last Filed Vital Signs Vital Sign Reading Time Taken Comments Blood Pressure 126/84 03/08/2025 3:54 PM CDT Pulse 102 03/08/2025 3:54 PM CDT Temperature - - Respiratory Rate - - Oxygen Saturation 99% 03/08/2025 3:54 PM CDT Inhaled Oxygen Concentration - - Weight 107 kg (236 lb) 03/08/2025 3:54 PM CDT Height 177.8 cm (5' 10) 03/08/2025 3:54 PM CDT Body Mass Index 33.86 03/08/2025 3:54 PM CDT documented in this encounter Progress Notes * Racheal Palomares MD - 03/08/2025 4:00 PM CDT NEW PATIENT RHEUMATOLOGY VISIT Assessment & Plan Problem List Asthma Bipolar Type 1 Anxiety PTSD GERD Focal epilepsy History of gallbladder removal in December 2024. Sjogren's disease Comment: Diagnosis based on SICCA symptoms, arthralgias, fatigue, raynaud's and SAMANTHA 1: 320 speckledpattern, +SSA Negative SCL 70, centromere, dsDNA, CONCRETE CRUSHER LOADER OPERATOR, and Cano Tx history: Plaquenil [id number] Methotrexate 2021 (was on this for 6 months) with improvement in arthralgias over knees and hands but had anxiety over injections as well as severe nausea/vomiting Has been lost to care since 2021. Currently with arthralgias and stiffness over knees and ankles with subjective swelling, and stiffness over fingers with pain with overuse. Morning stiffness lastingabout 20-30 minutes, no evidence of inflammatory arthritis on exam today, profound fatigue, dry eyes, dry mouth, dry skin Plan: -conservative management for Raynaud's, - Prescribed hydroxychloroquine (Plaquenil) 400 mg daily, to be started after completion of a Plaquenil eye exam, given prior plaquenil use and no previous plaquenil eye exam. 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 -I reviewed the potential adverse reactions related to Hydroxychloroquine/Plaquenil of retinal toxicity, changes in pigmentation of the skin, hematologic side effects, myopathy, cardiomyopathy (rare), and stomach upset including nausea and vomiting. Preventative care in patient with autoimmune disease Comment: Plan: -Discussed with patient that people with autoimmune disease have increased risk of cardiovascular disease. Recommended working with their primary care doctor to mitigate cardiovascular risk factors. -Discussed with patient that those of autoimmune disease and on immunosuppressive medications have a higher risk of malignancies. They are up-to-date on Pap smears Reproductive health Comment: Currently is sexually active. Not planning . Has had surgical removal of fallopian tubes. The longitudinal plan of care for the diagnosis(es)/condition(s) as documented were addressed during this visit. Due to the added complexity in care, I will continue to support [place] in the subsequent management and with ongoing continuity of care. Return to Clinic in 3 months Orders Placed This Encounter Procedures ALT AST Creatinine CBC with platelets Erythrocyte sedimentation rate auto CRP inflammation 60 minutes spent on the day of the encounter doing chart review, history and exam, counseling and documentation. Subjective HPI Patient is referred for evaluation of possible Sjogren syndrome Previous workup for possible autoimmune disease in 2018 showed an elevated rheumatoid factor with negative CCP, positive SSA, and positive SAMANTHA 1: 320 speckled pattern, and elevated CRP to 8.5.. At that time she had negative SCL 70, centromere, dsDNA, CONCRETE CRUSHER LOADER OPERATOR, and Cano. 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 Per review of this note she was diagnosed with Sjogren syndrome based on the above lab workup as well as fatigue, sicca symptoms, no evidence of active synovitis on exam to suggest rheumatoid arthritis. She was treated with Plaquenil 400 mg daily which was started in 2018 and continued until 2021. Today she reports she initially experienced knee pain, hand cramps, dry skin, dry eyes, and generalized dryness. Autoimmune panel confirmed Sjogren's. Treated with Plaquenil from 2018 to 2019, then switched to methotrexate injections around late 2021 or early 2022 due to elevated inflammatory markers and worsening pain in knees and hands, as well as increased fatigue. Methotrexate was used for approximately 6 months, but discontinued due to anxiety and panic attacks related to injections as well as nausea and vomiting. Plaquenil was stopped when methotrexate was started. Reports some improvement in pain with methotrexate.Has been off both medications since 2022 due to being lost to care. Currently reports worsening pain, primarily in knees and hands, with radiation throughout the body,daily fatigue, inability to produce tears, and stiffness in fingers affecting typing. Ankles now experience more frequent pain, especially with increased walking, and knees swell overnight. Morning stiffness mainly affects legs and lasts 20-30 minutes, sometimes requiring CBD cream for relief. Dry eyes persist, managed with preservative-free artificial tears. Dry mouth is present, never treated with medications. Experiences pink skin over arms. Reports color changes in fingers with cold exposure, including pallor and then blue discoloration. Reports oral ulcers 3-4 times per year. A Denies new cough, chest pain, blood in stool or urine, recurrent fevers, numbness, tingling, or weakness. Reports daily acid reflux, improved with weight loss but worsened after regaining weight. Muscle pain occurs only during menses. History of bipolar disorder type 1, well controlled, and focal epilepsy, seizure-free for several years. Also reports anxiety and PTSD. Currently uses CBD edibles for pain relief. No family autoimmune disease Not a previous smoker. Not a current smoker. Lab and Imaging review: I reviewed recent labs and imaging including: Elevated rheumatoid factor with negative CCP, positive SSA, and positive SAMANTHA 1: 320 speckled pattern, and elevated CRP to 8.5..Negative SCL 70, centromere, dsDNA, CONCRETE CRUSHER LOADER OPERATOR, and Cano. Current Outpatient Medications: brexpiprazole (REXULTI) 1 MG tablet, Take 1 mg by mouth., Disp: , Rfl: brexpiprazole (REXULTI) 3 MG tablet, Take 30 mg by mouth., Disp: , Rfl: CRRSYPTAER-COVD-WSMO-COD PO, Take by mouth., Disp: , Rfl: carboxymethylcellulose (REFRESH LIQUIGEL) 1 % ophthalmic solution, Apply 1 vial to eye., Disp: , Rfl: hydroxychloroquine (PLAQUENIL) 200 MG tablet, Take 2 tablets (400 mg) by mouth daily., Disp: 90 tablet, Rfl: 1 REXULTI 1 MG tablet, Take 1 mg by mouth at bedtime., Disp: , Rfl: Allergies: Allergies Allergen Reactions Chicken-Derived Products (Egg) Nausea and Vomiting and Other (See Comments) Other reaction(s): GI Intolerance Egg Shells Nausea and Vomiting Egg Solids, Whole GI Disturbance and Nausea and Vomiting Peanut (Diagnostic) Anaphylaxis Cashews as well Peanut-Containing Drug Products Swelling Sesame Oil Anaphylaxis and Difficulty breathing Cashew Nut (Anacardium Occidentale) Skin Test Cashew Nut Oil Swelling Banana Other (See Comments) and Nausea and Vomiting Latex Blisters, Dermatitis, Itching and Rash Other Food Allergy Diarrhea Medical Hx: No past medical history on file. Surgical Hx: No past surgical history on file. Family Hx: No family history on file. Social Hx: Objective Physical Exam BP 126/84 Pulse 102 Ht 1.778 m (5' 10) Wt 107 kg (236 lb) SpO2 99% BMI 33.86 kg/m?? General: alert, well appearing, no distress HEENT: no alopecia, clear conjunctiva, no oral or nasal ulcers, no cervical lymphadenopathy Cardiac: normal rate and rhythm, no murmur, rubs or gallops Pulm: normal respiratory effort, clear to auscultation bilaterally MSK: Hand, wrist, elbow, and shoulder joints without evidence of synovitis or effusion. Intact range of motion. Foot/ankle/knee/hip joints without erythema/effusion/tenderness and with intact nonpainful range of motion. TTP over both inner wrists, bilateral shoulder, knees, ankles, feet. Pain with flexion of knees but full flexion, no synovitis as above, and with hip ROM which is present over medial groin and wraps around down to knees. Skin: No rashes, warm and well-perfused. No nail pitting, digital ulceration, dactylitis, or telangiectasias. No subcutaneous nodules. Racheal Palomares MD Rheumatology documented in this encounter Nursing Notes * Shannon Menendez MA - 03/08/2025 4:00 PM CDT Chief Complaint Patient presents with Consult Sjogren's syndrome; Scheduled per pt; Referred by Simon Mendoza MD; -[facility] BP 126/84 Pulse 102 Ht 1.778 m (5' 10) Wt 107 kg (236 lb) SpO2 99% BMI 33.86 kg/m?? Shannon Menendez MA on 03/08/2025 at 3:57 PM documented in this encounter Plan of Treatment Scheduled Orders Name Type Priority Associated Diagnoses Orde r Schedule ALT Lab Routine Sjogren syndrome, unspecified 1 month for 4 Occurrences starting 03/08/2025 until 03/08/2026, 1 completed AST Lab Routine Sjogren syndrome, unspecified 1 month for 4 Occurrences starting 03/08/2025 until 03/08/2026, 1 completed Creatinine Lab Routine Sjogren syndrome, unspecified 1 month for 4 Occurrences starting 03/08/2025 until 03/08/2026, 1 completed CBC with platelets Lab Routine Sjogren syndrome, unspecified 1 month for 4 Occurrences starting 03/08/2025 until 03/08/2026, 1 completed Erythrocyte sedimentation rate auto Lab Routine Sjogren syndrome, unspecified 1 month for 4 Occurrences starting 03/08/2025 until 03/08/2026, 1 completed CRP inflammation Lab Routine Sjogren syndrome, unspecified 1 month for 4 Occurrences starting 03/08/2025 until 03/08/2026, 1 completed documented as of this encounter Results * (ABNORMAL) CRP inflammation (03/14/2025 9:10 AM CDT) CRP Inflammation 5.34(H) <5.00 mg/L 03/14/2025 4:31 PM CDT [facility] Blood BLOOD SPECIMEN / Unknown Venipuncture / Unknown 03/14/2025 9:10 AM CDT 03/14/2025 9:10 AM CDT us Racheal Palomares MD LAB - BLOOD O RDERABLES Final Result [facility] [place] [facility] [address] [facility], [address] [address], [facility] * Erythrocyte sedimentation rate auto (03/14/2025 9:10 AM CDT) Erythrocyte Sedimentation Rate 18 0 - 20 mm/hr 03/14/2025 9:44 AM CDT [facility] Blood BLOOD SPECIMEN / Unknown Venipuncture / Unknown 03/14/2025 9:10 AM CDT 03/14/2025 9:10 AM CDT Racheal Palomares MD LAB - BLOOD O RDERABLES Final Result [facility] [place] [facility] [address] [facility] (no room number, 1st floor of clinic) [place] [address], [facility] * CBC with platelets (03/14/2025 9:10 AM CDT) WBC Count 5.72 4.00 - 11.00 10e3/uL 03/14/2025 9:17 AM CDT [facility] RBC Count 4.47 3.80 - 5.20 10e6/uL 03/14/2025 9:17 AM CDT [facility] Hemoglobin 12.0 11.7 - 15.7 g/dL 03/14/2025 9:17 AM CDT [facility] Hematocrit 38.1 35.0 - 47.0 % 03/14/2025 9:17 AM CDT [facility] MCV 85.2 78.0 - 100.0 fL 03/14/2025 9:17 AM CDT [facility] MCH 26.8 26.5 - 33.0 pg 03/14/2025 9:17 AM CDT [facility] MCHC 31.5 31.5 - 36.5 g/dL 03/14/2025 9:17 AM CDT [facility] RDW 14.7 10.0 - 15.0 % 03/14/2025 9:17 AM CDT [facility] Platelet Count 411 150 - 450 10e3/uL 03/14/2025 9:17 AM CDT [facility] Blood BLOOD SPECIMEN / Unknown Venipuncture / Unknown 03/14/2025 9:10 AM CDT 03/14/2025 9:10 AM CDT Racheal Palomares MD LAB - BLOOD O RDERABLES Final Result [facility] [place] [facility] [address] [facility] (no room number, 1st floor of clinic) [place] [address], [facility] * (ABNORMAL) Creatinine (03/14/2025 9:10 AM CDT) Creatinine 0.97(H) 0.51 - 0.95 mg/dL 03/14/2025 4:31 PM CDT [facility] GFR Estimate 80 >60 mL/min/1.7 3m2 03/14/2025 4:31 PM CDT [facility] Comment:eGFR calculated us2020 CKD-EPI equation. Blood BLOOD SPECIMEN / Unknown Venipuncture / Unknown 03/14/2025 9:10 AM CDT 03/14/2025 9:10 AM CDT Racheal Palomares MD LAB - BLOOD O RDERABLES Final Result [facility] [place] [facility] [address] [facility], [address] * AST (03/14/2025 9:10 AM CDT) AST 22 0 - 45 U/L 03/14/2025 4:3 1 PM CDT [facility] Blood BLOOD SPECIMEN / Unknown Venipuncture / Unknown 03/14/2025 9:10 AM CDT 03/14/2025 9:10 AM CDT Racheal Palomares MD LAB - BLOOD O RDERABLES Final Result [facility] [place] [facility] [address] [facility], [address] [place] [phone] * ALT (03/14/2025 9:10 AM CDT) ALT 20 0 - 50 U/L 03/14/2025 4:3 1 PM CDT [facility] Blood BLOOD SPECIMEN / Unknown Venipuncture / Unknown 03/14/2025 9:10 AM CDT 03/14/2025 9:10 AM CDT us Racheal Palomares MD LAB - BLOOD O RDERABLES Final Result [facility] [place] [facility] [address] [facility], [address] [place] [address], [facility] documented in this encounter Visit Diagnoses Diagnosis Sjogren syndrome, unspecified documented in this encounter Care Teams Brush Sander Relationship Specialty Start Date End Date Simon Mendoza MD [facility] & [address] [address] PCP - General Family Medicine 03/05/25 Racheal Palomares MD [address] [address] Physician Rheumatology 03/05/25 documented as of this encounter
--- OUTSIDE RECORDS SUMMARY | 2025-03-14 08:15 | XMS_ITS | Encounter Summary ---
Author Organization [facility] Address [address] [place] [address] Care Team Providers Care Manufacturing Operator Name Role Phone Simon Mendoza MD Primary Care Provider [phone] Racheal Palomares MD Unavailable Encounter Details Date Type Department Care Team (Late st Contact Info) Description 03/14/2025 9:15 AM CDT [facility] [address] [place] [phone] Sjogren syndrome, unspecified Social History Tobacco Use Types Packs/Day Years Used Date Smoking Tobacco: Never Assessed Comments Unknown Sex and Gender Information Value Date Recorded Sex Assigned at Not on file Legal Sex Female 3:28 PM CDT Gender Identity Not on file Sexual Orientation Not on file documented as of this encounter Plan of Treatment Not on file documented as of this encounter Procedures Procedure Name Priority Date/Time Associated Diagnosis Comments ERYTHROCYTE SEDIMENTATION RATE AUTO Routine 03/14/2025 9:10 AM CDT Sjogren syndrome, unspecified CRP INFLAMMATION Routine 03/14/2025 9:10 AM CDT Sjogren syndrome, unspecified CREATININE Routine 03/14/2025 9:10 AM CDT Sjogren syndrome, unspecified AST Routine 03/14/2025 9:10 AM CDT Sjogren syndrome, unspecified ALT Routine 03/14/2025 9:10 AM CDT Sjogren syndrome, unspecified CBC WITH PLATELETS Routine 03/14/2025 9: 10 AM CDT Sjogren syndrome, unspecified documented in this encounter Results * (ABNORMAL) CRP inflammation (03/14/2025 9:10 AM CDT) CRP Inflammation 5.34(H) <5.00 mg/L 03/14/2025 4:31 PM CDT [facility] Blood BLOOD SPECIMEN / Unknown Venipuncture / Unknown 03/14/2025 9:10 AM CDT 03/14/2025 9:10 AM CDT Racheal Palomares MD LAB - BLOOD O RDERABLES Final Result [facility] [place] [facility] [address] [facility], [address] [place] [address] * Erythrocyte sedimentation rate auto (03/14/2025 9:10 AM CDT) Pathologist [facility] Erythrocyte Sedimentation Rate 18 0 - 20 mm/hr 03/14/2025 9:44 AM CDT LABORATORY Blood BLOOD SPECIMEN / Unknown Venipuncture / Unknown 03/14/2025 9:10 AM CDT 03/14/2025 9:10 AM CDT Racheal Palomares MD LAB - BLOOD O RDERABLES Final Result LABORATORY [facility] [id number] [place] [address] (no room number, 1st floor of clinic) [place] [address] * CBC with platelets (03/14/2025 9:10 [...] BLOOD O RDERABLES Final Result [facility] LABORATORY [facility] [address] [facility] (no room number, 1st floor of clinic) [place] [address], [facility] * (ABNORMAL) Creatinine (03/14/2025 9:10 AM CDT) Creatinine 0.97(H) 0.51 - 0.95 mg/dL 03/14/2025 4:31 PM CDT [facility] GFR Estimate 80 >60 mL/min/1.7 3m2 03/14/2025 4:31 PM CDT [facility] Comment:eGFR calculated us2020 CKD-EPI equation. Blood BLOOD SPECIMEN / Unknown Venipuncture / Unknown 03/14/2025 9:10 AM CDT 03/14/2025 9:10 AM CDT Racheal Palomares MD LAB - BLOOD O RDERABLES Final Result LABORATORY [facility] Lab [address] [facility], [address] [phone] [place] [address] * AST (03/14/2025 9:10 AM CDT) AST 22 0 - 45 U/L 03/14/2025 4:3 1 PM CDT U LABORATORY Blood BLOOD SPECIMEN / Unknown Venipuncture / Unknown 03/14/2025 9:10 AM CDT 03/14/2025 9:10 AM CDT Racheal Palomares MD LAB - BLOOD O RDERABLES Final Result LABORATORY [facility] Lab [address] [facility], [address] * ALT (03/14/2025 9:10 AM CDT) ALT 20 0 - 50 U/L 03/14/2025 4:3 1 PM CDT LABORATORY Blood BLOOD SPECIMEN / Unknown Venipuncture / Unknown 03/14/2025 9:10 AM CDT 03/14/2025 9:10 AM CDT Racheal Palomares MD LAB - BLOOD O RDERABLES Final Result LABORATORY [facility] Core Lab [address] [facility], [address] [phone] [place] [address] documented in this encounter Visit Diagnoses Diagnosis Sjogren syndrome, unspecified documented in this encounter Care Teams Manufacturing Operator Relationship Specialty Start Date End Date Simon Mendoza MD [facility] & [address] [address] PCP - General Family Medicine 03/05/25 Racheal Palomares MD [address] [address] Physician Rheumatology 03/05/25 documented as of this encounter
[2025-04-15] VITALS (16 sets, daily range): BP systolic 121–152; BP diastolic 72–88; PULSE 66–93; RESP 16–22; TEMP 36.1; O2SAT 90–100; BMI 33.1
--- OUTSIDE RECORDS SUMMARY | 2025-04-15 11:39 | XMS_ITS | Clinical Summary ---
Author Organization [facility] Address [address] [place] [address] Care Team Providers Care Medical Technologist Generalist Name Role Phone Simon Mendoza MD Primary Care Provider [phone] Racheal Palomares MD Unavailable Racheal Palomares MD Unavailable Allergies Active Allergy Reactions Criticality Noted Date Comments Banana Other (See Comments),Nausea and Vomiting Low 08/02/2023 Cashew Nut (Anacardium Occidentale) Skin Test 01/11/2014 Cashew Nut Oil Swelling 07/15/2011 Chicken-Derived Products (Egg) Nausea and Vomiting,Other (See Comments) High 05/09/2012 Other reaction(s): GI Intolerance Egg Shells Nausea and Vomiting High 06/01/2012 Egg Solids, Whole GI Disturbance,Nause a and Vomiting High 05/09/2012 Latex Blisters,Dermatitis, It yoshi,Rash Low 08/24/2021 Other Food Allergy Diarrhea Low 01/02/2025 Peanut (Diagnostic) Anaphylaxis High 05/09/2012 Cashews as well Peanut-Containing Drug Products Swelling High 06/01/2012 Sesame Oil Anaphylaxis,Difficul ty breathing High 01/02/2025 Medications BUTALBITAL-APAP- CAFF-COD PO Take by mouth. Active carboxymethylcel lulose (REFRESH LIQUIGEL) 1 % ophthalmic solution Apply 1 vial to eye. Active brexpiprazole (REXULTI) 3 MG tablet Take 30 mg by mouth. Active brexpiprazole (REXULTI) 1 MG tablet Take 1 mg by mouth. Active REXULTI 1 MG tablet Take 1 mg by mouth at bedtime. Active hydroxychloroqui ne (PLAQUENIL) 200 MG tabletIndication s:Sjogren syndrome, unspecified Take 2 tablets (400 mg) by mouth daily. 90 tablet 1 03/08/2025 Active Encounters Date Type Department Care Team Description 03/17/2025 Results Follow-Up [facility] [address] [facility] [address] [place] [address] Racheal Goodman MD Subj: Message about your results 03/14/2025 9:[address] [facility] [address] [place] [address] Sjogren syndrome, unspecified 03/14/2025 Travel 03/11/2025 MyC Medical Advice formerly [facility] [address] [place] [phone] Racheal Goodman MD 03/08/2025 4:00 PM CDT Office Visit formerly [facility] [address] [place] [phone] Racheal Goodman MD Sjogren syndrome, unspecified 03/08/2025 Travel 03/06/2025 Travel 02/28/2025 Transcribe Orders GENERIC EXTERNAL DATA DEPARTMENT Simon Mendoza MD Sjogren syndrome, unspecified (Primary Dx) from Last 3 Months Social History Tobacco Use Types Packs/Day Years Used Date Smoking Tobacco: Never Assessed Comments Unknown Sex and Gender Information Value Date Recorded Sex Assigned at Not on file Legal Sex Female 3:28 PM CDT Gender Identity Not on file Sexual Orientation Not on file Last Filed Vital Signs Vital Sign Reading [...] Mass Index 33.86 03/08/2025 3:54 PM CDT Plan of Treatment Health Maintenance Due Date Last Done Comments ADVANCE CARE PLANNING 1993 ANNUAL REVIEW OF HM ORDERS 1993 HIV SCREENING 2008 PAP 2014 PHQ-2 (once per calendar year) 2024 YEARLY PREVENTIVE VISIT 08/25/2024 08/26/19 24, 11/12/2021, 01/01/2021 COVID-19 VACCINE ( - season) 2025 05/16/2024 INFLUENZA VACCINE (#1) 2025 05/16/2024 DTAP/TDAP/TD VACCINE (8 - Td or Tdap) 08/25/2033 08/26/2023, 10/26/2007, 09/11/1998, Additional history exists ZOSTER VACCINE (1 of 2) 09/15/2043 HEPATITIS B VACCINE Completed 09/11/1998, 08/12/1995, 1993 HPV VACCINE Completed 05/01/2009, 07/2007, 10/26/2007 MENINGITIS VACCINE Completed 09/16/2011 HEPATITIS C SCREENING Completed 10/29/2019 PNEUMOCOCCAL VACCINE: PEDIATRICS (0 to 5 YEARS) AND AT-RISK PATIENTS (6 to 49 YEARS) Aged Out No longer eligible based on patient's age to complete this topic Procedures Procedure Name Priority Date/Time Associated Diagnosis Comments CRP INFLAMMATION Routine 03/14/2025 9:10 AM CDT Sjogren syndrome, unspecified ERYTHROCYTE SEDIMENTATION RATE AUTO Routine 03/14/2025 9:10 AM CDT Sjogren syndrome, unspecified CBC WITH PLATELETS Routine 03/14/2025 9: 10 AM CDT Sjogren syndrome, unspecified CREATININE Routine 03/14/2025 9:10 AM CDT Sjogren syndrome, unspecified AST Routine 03/14/2025 9:10 AM CDT Sjogren syndrome, unspecified ALT Routine 03/14/2025 9:10 AM CDT Sjogren syndrome, unspecified from Last 3 Months Results * Erythrocyte sedimentation rate auto (03/14/2025 9:10 AM CDT) Erythrocyte Sedimentation Rate 18 0 - 20 mm/hr 03/14/2025 9:44 AM CDT LABORATORY Blood BLOOD SPECIMEN / Unknown Venipuncture / Unknown 03/14/2025 9:10 AM CDT 03/14/2025 9:10 AM CDT Racheal Palomares MD LAB - BLOOD O RDERABLES Final Result LABORATORY [facility] [address] [facility] (no room number, 1st floor of clinic) [place] [address] * (ABNORMAL) CRP inflammation (03/14/2025 9:10 AM CDT) CRP Inflammation 5.34(H) <5.00 mg/L 03/14/2025 4:31 PM CDT [facility] Blood BLOOD SPECIMEN / Unknown Venipuncture / Unknown 03/14/2025 9:10 AM CDT 03/14/2025 9:10 AM CDT Racheal Palomares MD LAB - BLOOD O RDERABLES Final Result [facility] [place] [facility] [address] [facility], [address] [place] [address] * (ABNORMAL) Creatinine (03/14/2025 9:10 AM CDT) Creatinine 0.97(H) 0.51 - 0.95 mg/dL 03/14/2025 4:31 PM CDT [facility] GFR Estimate 80 >60 mL/min/1.7 3m2 03/14/2025 4:31 PM CDT [facility] Comment:eGFR calculated us2020 CKD-EPI equation. Blood BLOOD SPECIMEN / Unknown Venipuncture / Unknown 03/14/2025 9:10 AM CDT 03/14/2025 9:10 AM CDT Racheal Palomares MD LAB - BLOOD O RDERABLES Final Result U LABORATORY [facility] [place] [facility] [address] [facility], [address] * AST (03/14/2025 9:10 AM CDT) AST 22 0 - 45 U/L 03/14/2025 4:3 1 PM CDT [facility] Blood BLOOD SPECIMEN / Unknown Venipuncture / Unknown 03/14/2025 9:10 AM CDT 03/14/2025 9:10 AM CDT us Racheal Palomares MD LAB - BLOOD O RDERABLES Final Result U LAB[facility]ATORY [facility] [place] [facility] [address] [facility], [address] * ALT (03/14/2025 9:10 AM CDT) ALT 20 0 - 50 U/L 03/14/2025 4:3 1 PM CDT [facility] Blood BLOOD SPECIMEN / Unknown Venipuncture / Unknown 03/14/2025 9:10 AM CDT 03/14/2025 9:10 AM CDT us Racheal Palomares MD LAB - BLOOD O RDERABLES Final Result [facility] [place] [facility] [address] [facility], [address] [place] [address], [facility] * CBC with platelets (03/14/2025 [...] BLOOD O RDERABLES Final Result LV LABORATORY [facility] [address] [facility] Lab (no room number, 1st floor of clinic) [place] [address], [facility] from Last 3 Months Insurance BCBS [place] [address] [place] [address] OUT OF STATE Care Teams Medical Technologist Generalist Relationship Specialty Start Date End Date Simon Mendoza MD [address] [address] PCP - General Family Medicine 03/05/25 Racheal Palomares MD [address] [place] [address] Physician Rheumatology 03/05/25 Racheal Palomares MD [address] [place] [address] Assigned Rheumatology Provider 04/04/25
--- OUTSIDE RECORDS SUMMARY | 2025-04-15 11:39 | XMS_ITS | Encounter Summary ---
Author Organization [facility] Address [address] [place] [address] Care Team Providers Care Blocker And Sewer Name Role Phone Simon Mendoza MD Primary Care Provider [phone] Racheal Palomares MD Unavailable Encounter Details Date Type Department Care Team (Latest Contact Info) Description 03/08/2025 Travel Social History Tobacco Use Types Packs/Day Years Used Date Smoking Tobacco: Never Assessed Comments Unknown Sex and Gender Information Value Date Recorded Sex Assigned at Not on file Legal Sex Female 3:28 PM CDT Gender Identity Not on file Sexual Orientation Not on file documented as of this encounter Plan of Treatment Not on file documented as of this encounter Visit Diagnoses Not on filedocumented in this encounter Care Teams Blocker And Sewer Relationship Specialty Start Date End Date Simon Mendoza MD [facility] [address] [place] [address] PCP - General Family Medicine 03/05/25 Racheal Palomares MD [address] [place] [address] Physician Rheumatology 03/05/25 documented as of this encounter
--- OUTSIDE RECORDS SUMMARY | 2025-04-15 11:39 | XMS_ITS | Encounter Summary ---
Author Organization [facility] Address [address] [place] [address] Care Team Providers Care Painter Airbrush Name Role Phone Simon Mendoza MD Primary Care Provider [phone] Racheal Palomares MD Unavailable Racheal Palomares MD Unavailable Encounter Details Date Type Department Care Team (Late st Contact Info) Description 03/11/2025 [facility] Medical Advice [facility] Rheumatology [address] [place] [phone] Racheal Palomares MD [address] [address] Social History Tobacco Use Types Packs/Day Years [...] on filedocumented in this encounter Care Teams Painter Airbrush Relationship Specialty Start Date End Date Simon Mendoza MD [facility] [address] [place] [address] PCP - General Family Medicine 03/05/25 Racheal Palomares MD [address] [address] Physician Rheumatology 03/05/25 Racheal Palomares MD [address] [address] Assigned Rheumatology Provider 04/04/25 documented as of this encounter
--- OUTSIDE RECORDS SUMMARY | 2025-04-15 11:39 | XMS_ITS | Encounter Summary ---
Author Organization [facility] Address [address] [place] [address] Care Team Providers Care Loom Operator Name Role Phone Simon Mendoza MD Primary Care Provider [phone] Racheal Palomares MD Unavailable Encounter Details Date Type Department Care Team (Latest Contact Info) Description 03/14/2025 Travel Social History Tobacco Use Types Packs/Day [...] on filedocumented in this encounter Care Teams Loom Operator Relationship Specialty Start Date End Date Simon Mendoza MD [facility] [address] [place] [address] PCP - General Family Medicine 03/05/25 Racheal Palomares MD [address] [place] [address] Physician Rheumatology 03/05/25 documented as of this encounter
--- OUTSIDE RECORDS SUMMARY | 2025-04-15 11:39 | XMS_ITS | Encounter Summary ---
Author Organization [facility] Address [address] [place] [address] Care Team Providers Care Corporate Travel Coordinator Name Role Phone Simon Mendoza MD Primary Care Provider [phone] Racheal Palomares MD Unavailable Encounter Details Date Type Department Care Team (Latest Contact Info) Description 03/06/2025 Travel Social History Tobacco Use Types Packs/Day [...] on filedocumented in this encounter Care Teams Corporate Travel Coordinator Relationship Specialty Start Date End Date Simon Mendoza MD [facility] [address] [place] [address] PCP - General Family Medicine 03/05/25 Racheal Palomares MD [address] [place] [address] Physician Rheumatology 03/05/25 documented as of this encounter
--- OUTSIDE RECORDS SUMMARY | 2025-04-15 11:39 | XMS_ITS | Patient Health Record ---
Author Organization [facility] Address [address] [facility] [address] [place] [address] Care Team Providers Care Performance Improvement Coordinator Name Role Phone Outside, Provider Primary Care Provider Sandra Bell Unavailable [phone] Allergies No Known Allergies Reason For Referral No Information Medications Medication SIG (Take, Route, Frequency, Duration) Notes Start Date End Date Status Rexulti 1 MG Oral; Duration: 90 Days Active Trelegy Ellipta 100-62.5-25 MCG/ACT 1 puff Inhalation Once a day 09/01/2023 Active Lisdexamfetamine Dimesylate 70 MG TAKE ONE (1) CAPSULE(S) BY MOUTH DAILY. Oral; Duration: 30 Days Active lamoTRIgine 150 MG TAKE 1 TABLET BY ADRY TH TWICE DAILY Oral; Duration: 90 Days Active Problems Problem Type SNOMED Code ICD Code Onset Dates Problem Status W/U Status Risk Notes Problem Obesity (403300608) Obesity, unspecified (E66.9) Active confirmed Improving with Wegovy, BMI now in overweight category Problem Attention deficit hyperactivity disorder (659574917) ADHD (F90.9) Active confirmed Problem Body mass index 30.00 to 34.99 (837972235375997 ) Body mass index [BMI] 32.0-32.9, adult (Z68.32) Active confirmed Problem Body mass index 30.00 to 34.99 (874263871375828 ) Body mass index [BMI] 34.0-34.9, adult (Z68.34) Active confirmed Problem Body mass index 30+ - obesity (009861388) Body mass index [BMI] 30.0-30.9, adult (Z68.30) Active confirmed Plan Of Treatment No Information Insurance Providers Payer Name Payer Address Payer Phone Subscriber Number Group Number Insured Name Patient Relationship to Insured Coverage Start Date Coverage End Date [facility] [address] [place] [address] [id number] [place] Mendoza Self - patient is the insured 2 Medical (General) History Medical History History ICD Code bipolar disorder asthma sjogren syndrome epilepsy ADHD F90.9 Surgical History Surgery Date(Month/Year) bilateral salpingectomy 12/2021
--- OUTSIDE RECORDS SUMMARY | 2025-04-15 11:39 | XMS_ITS | Encounter Summary ---
Author Organization [facility] Address [address] [place] [address] Care Team Providers Care Advertising Clerk Name Role Phone Simon Mendoza MD Primary Care Provider [phone] Racheal Palomares MD Unavailable Racheal Palomares MD Unavailable Encounter Details Date Type Department Care Team (Late st Contact Info) Description 03/17/2025 Results Follow-Up [address] [phone] Racheal Palomares MD [address] [place] [phone] Subj: Message about your results Social History Tobacco Use Types Packs/Day Years [...] on filedocumented in this encounter Care Teams Advertising Clerk Relationship Specialty Start Date End Date Simon Mendoza MD [facility] & [address] [address] PCP - General Family Medicine 03/05/25 Racheal Palomares MD [address] [phone] Physician Rheumatology 03/05/25 Racheal Palomares MD [address] [phone] Assigned Rheumatology Provider 04/04/25 documented as of this encounter
--- NOTE | 2025-04-15 11:51 | ED.GENADULT ---
HPI - General Adult General Date Seen: 04/15/25 Chief complaint: Abdominal Pain Stated complaint: Sudden stomach pain, sweating, vomiting Time Seen by Provider: 04/15/25 11:42 History of Present Illness HPI narrative: 29-year-old female with a complex past history including prior laparoscopic cholecystectomy in December this year, presenting to the ER today with sudden onset of abdominal pain affecting her right middle abdomen. She had been having some mild pains for a little while after surgery but her surgeon told the pain would eventually go away. This morning she was in a meeting when she had onset of more severe pain. It made her sweaty and she actually threw up. Patient does report that she had been having abdominal pain last summer. It was determined that it was related to gallbladder and cholecystitis based on HIDA scan. She underwent laparoscopic cholecystectomy by Dr. Pyle in December. She did have several weeks of some intermittent abdominal pain, most typically in the morning and most typically in the right upper quadrant after surgery but that has now been better for several weeks. She has not had any recent abdominal troubles or any other recent symptoms such as fever, vomiting, diarrhea. This morning she was in a meeting with her boss at work when she started to have an episode of right upper quadrant abdominal pain that was more intense than any of her previous pain. It made her nauseous and she threw up once. She became lightheaded and when she tried to stand up and was presyncopal but sat back down. She was sweaty. She was not running a fever. Do not having any chest pain or shortness of breath. Pain is mostly in the right mid abdomen, lateral to our umbilicus. It does not really radiate from there. Her partner notes that she had been complaining of some back pain a few days ago . The patient says says she is not having back pain this morning. She does have well-controlled epilepsy on lamotrigine. She has Sjogren's syndrome and has recently been off of her immunomodulators so she has been experience some arthritis but that she does not think is related to her current symptoms. Related Data Home Medications ?Medication ?Instructions ?Recorded ?Confirmed lamotrigine 150 mg tablet 150 mg PO QDAY 04/10/24 04/15/25 (Lamictal) dextroamphetamine-amphetamine 10 1 tab PO DAILY 10/14/24 01/02/25 mg tablet hydroxyzine HCl 25 mg tablet 25 mg PO 3XD PRN 10/14/24 01/02/25 metformin 500 mg tablet 1,000 mg PO QDAY 10/30/24 01/02/25 omeprazole 20 mg capsule,delayed 20 mg PO BID 12/06/24 01/02/25 release Benadryl 04/15/25 Zantac 04/15/25 topiramate 50 mg tablet mg PO 04/15/25 Previous Rx's ?Medication ?Instructions ?Recorded lisdexamfetamine 70 mg capsule 70 mg PO QDAY #30 caps 08/06/24 (Vyvanse) brexpiprazole 1 mg tablet (Rexulti) 1 mg PO QDAY #30 tabs 08/20/24 epinephrine 0.3 mg/0.3 mL 0.3 mg (0.3 mL) IM Q5-15M PRN #2 ea 10/14/24 injection, auto-injector (EpiPen) oxycodone-acetaminophen 5 mg-325 0.5 - 1 tab PO Q6H PRN pain #24 12/12/24 mg tablet tabs oxycodone-acetaminophen 5 mg-325 1 tab PO Q6H PRN pain #10 tabs 12/24/24 mg tablet hydrocodone 5 mg-acetaminophen 325 1 - 2 tab PO Q4-6H PRN pain #10 04/15/25 mg tablet tabs ondansetron 4 mg disintegrating 4 mg PO Q8H PRN nausea and 04/15/25 tablet vomiting #10 tabs Allergies Allergy/AdvReac Type Severity Reaction Status Date / Time banana Allergy Mild Vomiting Verified 04/15/25 13:06 eggplant Allergy Mild Diarrhea Verified 04/15/25 13:06 latex Allergy Mild Rash Verified 04/15/25 13:06 seasame Allergy Severe Anaphylaxis Uncoded 04/15/25 13:06 [facility] PFSH Medical History (Updated 04/15/25 @ 14:34 by Paxton Zheng MD) Obesity ?E66.9 - Obesity, unspecified (ICD-10) Sjogren syndrome ?M35.00 - Sjogren syndrome, unspecified (ICD-10) Bipolar 1 disorder ?F31.9 - Bipolar disorder, unspecified (ICD-10) ADHD (attention deficit hyperactivity disorder) ?F90.9 - Attention-deficit hyperactivity disorder, unspecified type (ICD-10) PTSD (post-traumatic stress disorder) ?F43.10 - Post-traumatic stress disorder, unspecified (ICD-10) Exercise-induced asthma ?J45.990 - Exercise induced bronchospasm (ICD-10) NEHAL (generalized anxiety disorder) ?F41.1 - Generalized anxiety disorder (ICD-10) Hepatic steatosis ?K76.0 - Fatty (change of) liver, not elsewhere classified (ICD-10) Anxiety ?F41.9 - Anxiety disorder, unspecified (ICD-10) Musculoskeletal abnormal finding on examination ?R29.91 - Unspecified symptoms and signs involving the musculoskeletal system (ICD-10) Dyspareunia Acute on chronic cholecystitis ?K81.2 - Acute cholecystitis with chronic cholecystitis (ICD-10) Partial epilepsy ?G40.109 - Localization-related (focal) (partial) symptomatic epilepsy and epileptic syndromes with simple partial seizures, not intractable, without status epilepticus (ICD-10) Surgical History (Updated 01/02/25 @ 15:00 by Melody Mccarthy MD) S/P laparoscopic cholecystectomy ?Z90.49 - Acquired absence of other specified parts of digestive tract (ICD-10) History of bilateral salpingectomy ?Z90.79 - Acquired absence of other genital organ(s) (ICD-10) Family History Psychiatric illness Father Cancer Maternal Grandmother Maternal Grandfather Paternal Grandmother Paternal Grandfather High blood pressure Mother Father Gallbladder disease Mother Social History (Updated 12/21/24 @ 13:10 by Cassandra Zhao MD) Narrative: Lives with girlfriend, moved from [place], 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 [employer] Nonsmoker Does not drink alcohol No illegal drug use occasional edibles What is your current living situation?: I presently have a place to live Problems where you live: no known problems In the past 12 months, utilities in danger of being shut off: no In past 12 months, lack of transportation kept you from medical appts, meetings, work, or getting things needed for daily living: no In the past 12 mos, have been you worried that your food would run out before you had money to buy more?: never true In the past 12 mos, the food you bought just didn't last and you didn't have money to buy more?: never true Smoking Status: Never smoker Do you use any of these nicotine containing products: None How often do you have a drink containing alcohol: never AUDIT-C Alcohol total score: 0 Non-prescribed substance use: denies use How often does anyone, including family, friends and others, physically hurt you: never How often does anyone, including family, friends and others, insult or talk down to you: never How often does anyone, including family, friends and others, threaten you with harm: never How often does anyone, including family, friends and others, scream or curse at you: never Exam Narrative: Exam Narrative: Constitutional: Appears well-developed and well-nourished. Alert. Uncomfortable but conversant. HENT: Head: Atraumatic. Nose: Nose normal. Mouth/Throat: Oral mucosa is clear and moist. no trismus. Pharynx normal. Tonsils symmetric. No tonsillar enlargement, erythema, or exudate. Eyes: Conjunctivae normal. EOM normal. Pupils equal, round, and reactive to light. No scleral icterus. Neck: Normal range of motion. Neck supple. No tracheal deviation present. Cardiovascular: Normal rate, regular rhythm. No gallop. No friction rub. No murmur heard. Symmetric radial artery pulses Pulmonary/Chest: Effort normal. No stridor. No respiratory distress. No wheezes. No rales. No rhonchi . No tenderness. Abdominal: Soft. Bowel sounds normal. No distension. No mass. Marked right mid tenderness. Mildly tender in the right upper quadrant and epigastrium but much more tender in the right mid abdomen. Less tender in the right lower quadrant/McBurney's point. No CVA tenderness. No left-sided tenderness. No rebound. No guarding. Musculoskeletal: RUE: Normal range of motion. No tenderness. No deformity LUE: Normal range of motion. No tenderness. No deformity RLE: Normal range of motion. No edema. No tenderness. No deformity LLE: Normal range of motion. No edema. No tenderness. No deformity Neurological: Alert and oriented to person, place, and time. Normal strength. CN II-VII intact. No sensory deficit. GCS eye subscore is 4. GCS verbal subscore is 5. GCS motor subscore is 6. Normal coordination Skin: Skin is warm and dry. No rash noted. No pallor. Normal capillary refill. Psychiatric: Normal mood. Normal affect allowing for discomfort. Const: Vital Signs, click to edit/add: Vital Signs - 24 hr 04/15/25 11:43 04/15/25 12:39 04/15/25 12:40 Temperature 96.9 F L Pulse Rate 76 77 Pulse Rate [Pulse Oximeter] 66 Respiratory Rate 22 16 16 Blood Pressure 152/85 H Blood Pressure [Ri ght Upper Arm] 144/88 H Pulse Oximetry 100 98 98 Oxygen Delivery Me thod Room Air 04/15/25 12:45 04/15/25 13:15 04/15/25 13:16 Temperature Pulse Rate 84 92 89 Pulse Rate [Pulse Oximeter] Respiratory Rate Blood Pressure 135/81 Blood Pressure [Ri ght Upper Arm] Pulse Oximetry 99 100 99 Oxygen Delivery Me thod 04/15/25 13:21 04/15/25 13:22 04/15/25 13:30 Temperature Pulse Rate 93 88 92 Pulse Rate [Pulse Oximeter] Respiratory Rate 16 Blood Pressure 136/87 Blood Pressure [Ri ght Upper Arm] Pulse Oximetry 98 98 99 Oxygen Delivery Me thod 04/15/25 13:41 04/15/25 13:45 Temperature Pulse Rate 86 90 Pulse Rate [Pulse Oximeter] Respiratory Rate 16 Blood Pressure 124/74 Blood Pressure [Ri ght Upper Arm] Pulse Oximetry 99 91 Oxygen Delivery Me thod Course Course ED Course: Recheck-says pain is considerably better but not completely resolved. Repeat exam still reveals mild epigastric and right upper quadrant tenderness and right mid tenderness but much less tender than prior. No right lower quadrant tenderness. No left-sided tenderness. No CVA tenderness. Reevaluation(s) Reevaluation #1: Recheck-discussed patient and her partner. They are agreeable with the plan for outpatient management. Discussed return precautions and opiate precautions they agree. Vital Signs Vital signs: Initial Vital Signs Temperature 96.9 F L 04/15/25 11:43 Temperature Source Temporal Artery Scan 04/15/25 11:43 Pulse Rate 66 04/15/25 11:43 Respiratory Rate 22 04/15/25 11:43 Blood Pressure 144/88 H 04/15/25 11:43 Blood Pressure Mean 106 H 04/15/25 11:43 Blood Pressure Position Sitting 04/15/25 11:43 Pulse Oximetry 100 04/15/25 11:43 Oxygen Delivery Method Room Air 04/15/25 11:43 Vital Signs Temperature 96.9 F L 04/15/25 11:43 Pulse Rate 66 04/15/25 11:43 Respiratory Rate 22 04/15/25 11:43 Blood Pressure 144/88 H 04/15/25 11:43 Pulse Oximetry 100 04/15/25 11:43 Oxygen Delivery Method Room Air 04/15/25 11:43 Temperature 96.9 F L 04/15/25 11:43 Pulse Rate 90 04/15/25 13:45 Respiratory Rate 16 04/15/25 13:41 Blood Pressure 124/74 04/15/25 13:41 Pulse Oximetry 91 04/15/25 13:45 Oxygen Delivery Method Room Air 04/15/25 11:43 Medications Administered Medications: Generic Name Dose Route Start Last Admin Trade Name Freq PRN Reason Stop Dose Admin Hydromorphone HCl 0.5 mg 04/15/25 12:17 04/15/25 12:37 Hydromorphone 0.5 Mg/0.5 Ml Inj IVP 0.5 mg Q1H PRN Administration Pain Discontinued Medications Generic Name Dose Route Start Last Admin Trade Name Freq PRN Reason Stop Dose Admin Sodium Chloride 1,000 mls @ 1,000 mls/hr 04/15/25 12:15 04/15/25 14:03 0.9 % Sodium Chloride 1000 Ml IV 04/15/25 13:14 Infused .Q1H JENNIFER Infusion Ketorolac Tromethamine 15 mg 04/15/25 12:17 04/15/25 12:37 Ketorolac 15 Mg/Ml Inj IVP 04/15/25 12:18 15 mg ONCE ONE Administration Ondansetron HCl 4 mg 04/15/25 12:01 04/15/25 12:37 Ondansetron 2 Mg/Ml Inj IVP 04/15/25 12:02 4 mg ONCE ONE Administration Medical Decision Making MDM Narrative Medical decision making narrative: Presented to the Emergency Department with [] abdominal pain. The differential diagnosis of abdominal pain includes: Appendicitis, Bowel Obstruction, Ulcer, Ischemia, complication of cholecystectomy such as retained common bile duct stone, Diverticulitis, Pancreatitis, UTI, kidney stone, Enteritis/Colitis, amongst many other etiologies. Laboratory testing does not reveal a cause for the patient's pain. White count normal. Hemoglobin normal. LFTs and lipase are normal. Urinalysis is normal. test is negative. CT Imaging is noted to be normal. The exact etiology of the abdominal pain is not clear at this time. No life threatening cause or need for emergent surgery or hospital admission is detected today. The patient was advised that if symptoms do not completely resolve within another 24 hours re-evaluation with primary care or return to the ED is indicated. The patient also understands that if they worsen, they should return to the ER right away. I discussed the uncertainty about the diagnosis and answered the patient's questions. I suspect that this could potentially be related to peptic ulcer disease or duodenal ulcer. She does have history of GERD and has been on Prilosec 20 mg per day lately and also has been having to take extra Tums. She is not having any symptoms of GI bleeding. Hemoglobin is normal. No evidence for any perforation on her CT scan. I have ordered an outpatient endoscopy and recommend close outpatient follow-up with PCP to follow-up on the results. Recommend increasing Prilosec to 40 mg per day. Abdominal pain return precautions discussed. Prescriptions for [place] and Zofran. Opiate precautions reviewed. Lab Data Labs: Lab Results 04/15/25 04/15/25 Range/Units 12:10 12:35 WBC 7.95 (4.50-11.00) K/uL RBC 4.63 (4.00-5.20) m/uL Hgb 12.3 (12.0-16.0) gm/dL Hct 39.3 (33.0-51.0) % MCV 85 (80-100) fL MCH 27 (26-34) pg MCHC 31 L (32-36) gm/dL RDW Coeff of Liz 15.0 (11.5-15.5) % Plt Count 412 (140-440) K/uL Neut % (Auto) 71.2 (42.0-72.0) % Lymph % (Auto) 22.1 (20-44) % [place] % (Auto) 4.8 (0.0-11.0) % Eos % (Auto) 1.5 (0.0-7.0) % Baso % (Auto) 0.3 (0.0-3.0) % Neut # (Auto) 5.66 (1.7-7.0) K/uL Lymph # (Auto) 1.76 (0.90-2.90) K/uL [place] # (Auto) 0.40 (0.00-0.90) K/UL Eos # (Auto) 0.12 (0.00-0.50) K/uL Baso # (Auto) 0.02 (0.00-0.30) K/uL Abs Immat Gran (auto) 0.01 (0.00-0.30) K/uL Imm/Tot Granulo (auto) 0.1 % Sodium 138 (135-149) mmol/L Potassium 4.1 (3.6-5.1) mmol/L Chloride 105 (96-114) mmol/L Carbon Dioxide 24 (20-32) mmol/L Anion Gap 9 (7-15) mEq/L BUN 9 (5-24) mg/dL Creatinine 0.9 (0.5-1.5) mg/dL Estimated Creat Clear 97.94 Estimated GFR 88 ml/min Glucose 100 (60-115) mg/dL Calcium 9.0 (8.4-10.6) mg/dL Total Bilirubin 0.3 (0.1-1.5) mg/dL AST 25 (12-35) U/L ALT 22 (4-35) U/L Alkaline Phosphatase 105 (40-150) U/L Total Protein 8.6 H (6.0-8.3) g/dL Albumin 4.5 (3.3-5.0) g/dL Lipase 92 (23-300) U/L Urine Color Yellow (Yellow) Urine Appearance Slightly Cloudy A (Clear) Urine pH 5.0 (5.0-8.5) Ur Specific [place] >= 1.030 (1.000-1.030) Urine Protein Negative (Negative) Urine Glucose (UA) Negative (Negative) Urine Ketones Negative (Negative) Urine Blood 2+ A (Negative) Urine Nitrite Negative (Negative) Urine Bilirubin Negative (Negative) Urine Urobilinogen 0.2 (0.2-1.0) Ur Leukocyte Esterase Negative (Negative) Urine RBC 0-2 (0-2) Urine WBC 0-2 (0-5) Ur Squamous Epith Cells Moderate A (None-Few) Amorphous Sediment Moderate A (None) Urine Bacteria None (None) Urine HCG, Qual Negative (Negative) Imaging Data CT scan - abdomen: Attestation: I have reviewed the pertinent imaging results. Radiologist's impression: IMPRESSION: No gross CT finding to explain the patient`s symptoms. Discharge Plan Discharge Clinical Impression: Abdominal pain Patient Disposition: Home, Self-Care Condition: Stable Instructions: GERD (Gastroesophageal Reflux Disease) (DC), Abdominal Pain (ED) Additional Instructions: As we discussed, so far your workup looks reassuring and we do not have a definitive explanation for your pain. However, I suspect he might be having acid loaiza on the inner lining of your stomach or your duodenum. Please increase your home dose of Prilosec from 20 mg per day up to 40 mg per day. You can continue to use Tums as needed Use the prescription pain medicine and nausea medication only if needed. Be careful because prescription pain killers can cause dizziness, drowsiness, constipation, and can be addictive. Please call Dr. Christensen is office today to set up an ER follow-up visit for recheck as soon as possible. I have placed orders for you to get an endoscopy (camera to look for ulcers). You should receive a phone call from the Endoscopy clinic this afternoon or tomorrow to set up a date for your endoscopy. As we discussed, if you have any worsening symptoms such as worsening pain, high fever, bloody vomiting or stool, black stool, weakness, lightheadedness or fainting, please come back to the ER right away. Prescriptions: New hydrocodone-acetaminophen 5-325 mg tablet 1 - 2 tab PO Q4-6H PRN (Reason: pain) Qty: 10 0RF ondansetron 4 mg tablet,disintegrating 4 mg PO Q8H PRN (Reason: nausea and vomiting) Qty: 10 0RF No Action lamotrigine [Lamictal] 150 mg tablet 150 mg PO QDAY metformin 500 mg tablet 1,000 mg PO QDAY omeprazole 20 mg capsule,delayed release(DR/EC) 20 mg PO BID oxycodone-acetaminophen 5-325 mg tablet 1 tab PO Q6H PRN (Reason: pain) Qty: 10 0RF Benadryl Zantac topiramate 50 mg tablet PO dextroamphetamine-amphetamine 10 mg tablet 1 tab PO DAILY hydroxyzine HCl 25 mg tablet 25 mg PO 3XD PRN epinephrine [EpiPen] 0.3 mg/0.3 mL auto-injector 0.3 mg IM Q5-15M PRNQty: 2 0RF Rx Instructions: do not exceed 3 doses per episode lisdexamfetamine [Vyvanse] 70 mg capsule 70 mg PO QDAY Qty: 30 0RF Rexulti 1 mg tablet 1 mg PO QDAY Qty: 30 1RF oxycodone-acetaminophen 5-325 mg tablet 0.5 - 1 tab PO Q6H PRN (Reason: pain) Qty: 24 0RF Follow Up/Referrals: Simon Mendoza MD [Primary Care Provider, Family Practice] Stand Alone Forms: MyHealth Info Instructions
--- NOTE | 2025-04-15 12:01 | CRLHL7_ITS ---
For Patients: As a result of the Century Cures Act, medical imaging exams and procedure reports are released immediately into your electronic medical record. You may view this report before your referring provider. If you have questions, please contact your health care provider. INDICATION: Right-sided abdominal pain and vomiting. TECHNIQUE: CT abdomen and pelvis acquired with 114 cc Omnipaque 350 IV contrast. COMPARISON: None. FINDINGS: Bases are clear. The liver is normal in size. No definite is seen. Gallbladder is absent. No gross biliary ductal dilatation. The spleen normal in size. Pancreas is without stranding or main ductal dilatation. Adrenal glands are normal. Kidneys are symmetric enhancement without hydronephrosis or significant perinephric stranding. Urinary bladder is decompressed. Colon is nondilated. Partially obscured appendix is nondilated without evidence of acute appendicitis. The small bowel is nondilated without evidence obstruction or enteritis. The stomach is partially distended. No free air. No ascites. No organized drainable fluid collection. No lymphadenopathy is seen. Uterus is prominent, likely physiologic. Aorta is not aneurysmal. Bone windows demonstrate no suspicious lytic or sclerotic lesion. No fracture. IMPRESSION: No gross CT finding to explain the patient`s symptoms. Please note that all CT scans at this facility use dose modulation, iterative reconstruction, and/or weight-based dosing when appropriate to reduce radiation dose to as low as reasonably achievable. Dictated by Walker Reza MD @ 04/15/2025 1:22:28 PM (Electronically Signed)
[2025-04-15 12:32] LABS: Appearance Urine Slightly Cloudy (Clear)
[2025-04-15] MEDS: ONDANSETRON 2 MG/ML inj 4 MG IVP (12:37)
[2025-04-15 12:44] LABS: Ur HCG Qualitative* Negative (Negative)
[2025-04-15 12:54] LABS: Hematocrit* 39.3 % (33.0-51.0); Hemoglobin* 12.3 gm/dL (12.0-16.0); Immature Granulocytes Abs Auto 0.01 K/uL (0.00-0.30); Immature Granulocytes Pct Auto 0.1 %; Lymphocytes Absolute Auto 1.76 K/uL (0.90-2.90); Mean Corpuscular HGB Conc 31 gm/dL (32-36); Mean Corpuscular Hemoglobin 27 pg (26-34); Mean Corpuscular Volume 85 fL (80-100); RDW Coefficient of Variation % 15.0 % (11.5-15.5); Red Blood Count* 4.63 m/uL (4.00-5.20); White Blood Count* 7.95 K/uL (4.50-11.00)
[2025-04-15 12:56] LABS: Slide Review Reflex No
[2025-04-15 13:05] LABS: Albumin* 4.5 g/dL (3.3-5.0); Chloride* 105 mmol/L (96-114); Potassium* 4.1 mmol/L (3.6-5.1); Sodium* 138 mmol/L (135-149)
[2025-04-15 13:07] LABS: Blood Urea Nitrogen* 9 mg/dL (5-24); Creatinine* 0.9 mg/dL (0.5-1.5); Est. Creatinine Clearance* 97.94; Estimated Glomerular Filt Rate 88 ml/min
[2025-04-15 13:08] LABS: Alanine Aminotransferase* 22 U/L (4-35); Alkaline Phosphatase* 105 U/L (40-150); Anion Gap 9 mEq/L (7-15); Aspartate Amino Transferase* 25 U/L (12-35); Bilirubin Total* 0.3 mg/dL (0.1-1.5); Calcium* 9.0 mg/dL (8.4-10.6); Carbon Dioxide* 24 mmol/L (20-32); Glucose* 100 mg/dL (60-115); Total Protein* 8.6 g/dL (6.0-8.3)
== END 2025-04-15 14:44 | disposition home or self-care (01) ==
PROVIDERS: Emergency Provider Emergency Medicine; PCP Family Medicine
DX: R10.11 Right upper quadrant pain (principal)
CPT/HCPCS: 36415; 74177; 80053; 81001; 81025; 83690; 85025; 96361; 96374; 96375; 99283; 99284; J1171; J1885; J2405; J7030; Q9967

== ENCOUNTER 2025-04-22 07:55 | Outpatient (CLI) | payer BC, SELFPAY ==
--- NOTE | 2025-04-22 09:04 | P.ANES_ITS ---
Anesthesia Charges Start Date/Time Anesthesia Start Date: 04/22/25 Anesthesia Start Time: 08:45 Stop Date/Time Anesthesia Stop Date: 04/22/25 Anesthesia Stop Time: 09:00 Coding CPT Codes CPT Codes: ANES UPR GI NDSC PX NOS - 42164 ([id number]) P2 - PATIENT W/MILD SYST DISEASE, QK - PAINT SPECIALIST 2-4 CNCRNT ANES PROC
--- NOTE | 2025-04-22 09:04 | W.ANESCHARGE ---
Anesthesia Charges Start Date/Time Anesthesia Start Date: 04/22/25 Anesthesia Start Time: 08:45 Stop Date/Time Anesthesia Stop Date: 04/22/25 Anesthesia Stop Time: 09:00 Coding CPT Codes CPT Codes: ANES UPR GI NDSC PX NOS - 52816 ([id number]) P2 - PATIENT W/MILD SYST DISEASE, QK - GLOVE PRESSER 2-4 CNCRNT ANES PROC
--- NOTE | 2025-04-22 09:32 | P.ANES_ITS ---
Anesthesia Charges Start Date/Time Anesthesia Start Date: 04/22/25 Anesthesia Start Time: 08:45 Stop Date/Time Anesthesia Stop Date: 04/22/25 Anesthesia Stop Time: 09:00 Coding CPT Codes CPT Codes: ANES UPR GI NDSC PX NOS - 30737 ([id number]) P2 - PATIENT W/MILD SYST DISEASE, QK - DRILL PRESS HAND 2-4 CNCRNT ANES PROC, QX - WIRE DRAWING DIE MAKER SVC W/ MD MED DIRECTION
--- NOTE | 2025-04-22 09:32 | W.ANESCHARGE ---
Anesthesia Charges Start Date/Time Anesthesia Start Date: 04/22/25 Anesthesia Start Time: 08:45 Stop Date/Time Anesthesia Stop Date: 04/22/25 Anesthesia Stop Time: 09:00 Coding CPT Codes CPT Codes: ANES UPR GI NDSC PX NOS - 38881 ([id number]) P2 - PATIENT W/MILD SYST DISEASE, QK - CO FOUNDER AND PRESIDENT 2-4 CNCRNT ANES PROC, QX - WOOD [employer] WOOD [employer]ODUCTS LABOURER SVC W/ MD MED DIRECTION
== END 2025-04-22 07:56 | disposition home or self-care (01) ==
LOC: OP CLINIC 07:55
PROVIDERS: PCP Family Medicine; Visit Provider Internal Medicine
DX: R10.13 Epigastric pain (principal); K22.89 Other specified disease of esophagus
CPT/HCPCS: 00731; 43239; J2704; J3490